=== PATIENT | male | born 1965 | race Caucasian/White ===

== ENCOUNTER 2021-10-18 14:09 | Outpatient (REF) | payer MEDICARE, OTHER, SELFPAY ==
--- NOTE | ~2021-10-18 | US_ITS ---
EXAMINATION: US SCROTUM CLINICAL INFORMATION: Hydrocele. COMPARISON: Ultrasound scrotum 07/13/2016. TECHNIQUE: A sonogram of the scrotum was performed assessing [place]-scale appearance and color Doppler flow. Spectral Doppler analysis of the arterial and venous flow were performed in the testes bilaterally. FINDINGS: RIGHT: Right testicle measures 5.7 x 3.6 x 3.5 cm, volume 37.6 mL. No focal testicular parenchymal lesions are visualized. Spectral Doppler analysis of the arterial and venous flow is normal in the right testis. Right epididymal head is enlarged. There is a large septated right epididymal head cyst measuring 9.7 x 6.1 x 5.7 cm. This is slightly increased from previous exam when this measured 8 x 4.9 x 4.8 cm. No right hydrocele or varicocele is seen. Right epididymal Doppler flow is normal. LEFT: Left testicle measures 5.2 x 2.7 x 3.5 cm, volume 25.7 mL. No focal testicular parenchymal lesions are visualized. Spectral Doppler analysis of the arterial and venous flow is normal in the left testis. Left epididymal head is normal in size. No left hydrocele or varicocele is seen. Left epididymal Doppler flow is normal. US/US scrotum IMPRESSION: Large right minimally complex epididymal head cyst slightly increased in size from prior exam July 2016.
== END 2021-10-18 14:10 | disposition home or self-care (01) ==
LOC: HO.HMGCX 14:09
PROVIDERS: Visit Provider Internal Medicine
DX: N43.3 Hydrocele, unspecified (principal)
CPT/HCPCS: 76870

== ENCOUNTER 2022-01-13 11:19 | Emergency (ER) | payer MEDICARE, OTHER, SELFPAY ==
--- NOTE | ~2022-01-13 | XR_ITS ---
EXAMINATION: XR CHEST: PA AND LATERAL VIEWS XR LEFT SHOULDER: 3 VIEWS CLINICAL INFORMATION: Left scapula/shoulder pain COMPARISON: None. FINDINGS: Normal symmetric lung volumes. No parenchymal consolidation. No pleural effusion. No pneumothorax. Normal heart size. Pulmonary vascularity within normal limits. No acute osseous abnormalities. Small endplate osteophytes present throughout the thoracic spine. Small marginal osteophytes along the glenohumeral and acromioclavicular joints. No suspicious osseous lesions. XR/XR shoulder LT min 2V IMPRESSION: No acute pulmonary parenchymal abnormalities. No acute fracture or dislocation with respect to the left shoulder. Mild acromioclavicular and glenohumeral arthrosis.
--- NOTE | ~2022-01-13 | XR_ITS ---
EXAMINATION: XR CHEST: PA AND LATERAL VIEWS XR LEFT SHOULDER: 3 VIEWS CLINICAL INFORMATION: Left scapula/shoulder pain COMPARISON: None. FINDINGS: Normal symmetric lung volumes. No parenchymal consolidation. No pleural effusion. No pneumothorax. Normal heart size. Pulmonary vascularity within normal limits. No acute osseous abnormalities. Small endplate osteophytes present throughout the thoracic spine. Small marginal osteophytes along the glenohumeral and acromioclavicular joints. No suspicious osseous lesions. XR/XR chest 2V IMPRESSION: No acute pulmonary parenchymal abnormalities. No acute fracture or dislocation with respect to the left shoulder. Mild acromioclavicular and glenohumeral arthrosis.
[2022-01-13 12:20] VITALS: BP 128/89; PULSE 54; RESP 18; TEMP 36; O2SAT 98; BMI 39.3
--- NOTE | 2022-01-13 12:25 | ECG_ITS ---
Test Reason : chest pain Blood Pressure : / mmHG Vent. Rate : 050 BPM Atrial Rate : 050 BPM P-R Int : 202 ms QRS Dur : 108 ms QT Int : 426 ms P-R-T Axes : 056 072 036 degrees QTc Int : 388 ms Sinus bradycardia Otherwise normal ECG When compared with ECG of 25-APR-2012 10:47, No significant change was found Referred By: Generic ED Physician Electronically Signed By:NEDRA HAILE MD
[2022-01-13] MEDS: Lidocaine 4 % Patch ADH..PATCH 1 PATCH TRANSDERMA (13:02)
[2022-01-13] MEDS: Cyclobenzaprine HCl 10 MG TABLET PO (13:02)
[2022-01-13] MEDS: oxyCODONE HCl Immed Release 5 MG TABLET PO ×2 (13:03→14:45)
--- NOTE | 2022-01-13 13:43 | ED_ITS ---
HPI - Neck Pain/Injury General Chief Complaint: Back Pain/Injury Stated Complaint: back pain Time Seen by Provider: 01/13/22 12:49 Source: patient Mode of arrival: ambulatory Limitations: no limitations History of Present Illness HPI Narrative: 56-year-old male with a past medical history of thyroid disease, hyperlipidemia and arthritis presenting to the ED with complaints of atraumatic left scapular/trapezius pain radiating to his left arm with associated numbness/tingling to the thumb and the index finger of the left hand that started at around 04:00 when he woke up this morning. He reports that he normally wakes up at 4 in the morning it did not wake him up out of his sleep. He reports that it the pain is like a pulling sensation that goes down his arm. He reports he has never had this in the past although reports of degenerative disc disease and ruptured discs with spinal fusions in the past. Denies any recent falls or surgeries, dizziness, headaches, neck pain/stiffness, chest pain or shortness of breath, dyspnea exertion, orthopnea, palpitations, abdominal pain, lower back pain, rashes, recent falls or trauma, history of DVT or PE, recent immobilization or surgery, history of cancer or any other symptoms complaints or concerns at this time. MD complaint: upper back pain (left sided) Onset (ago): hour(s) (since he woke up at 4am ) Place: home Radiation: left lateral, left shoulder and upper back Severity: moderate and constant Quality: aching and throbbing Duration: constant Relieving factors: remaining still Exacerbating factors: movement of extremity Context: unknown Associated symptoms: tingling (to left arm/hand at the thumb and index finger ) Treatments prior to arrival: acetaminophen, ibuprofen and naproxen Related Data Previous Rx's Medication Instructions Recorded cyclobenzaprine 10 mg tablet 10 mg PO Q8H PRN Muscle spasm #10 01/13/22 tabs naproxen 500 mg tablet 500 mg PO BID PRN pain #10 tabs 01/13/22 oxycodone 5 mg tablet 5 mg PO Q6H PRN pain #10 tabs 01/13/22 Allergies Allergy/AdvReac Type Severity Reaction Status Date / Time No Known Allergies Allergy Unverified 03/18/20 15:00 Review of Systems Review of Systems: Constitutional : No trauma, No Weight loss, No Fever, No Ch ills, ENT/Mouth : No Hearing loss, No Ear Pain, No Nasal Congestion, No Sinus Pain, No Hoarseness, No sore throat, No Rhinorrhea, No Swallowing Difficulty Cardiovascular : No Chest Pain, No SOB Respiratory : No Cough, No Dyspnea Gastrointestinal : No Nausea, No Vomiting, No Diarrhea, No abdominal Pain, No Hematochezia, No Melena Genitourinary : No Dysuria, No Urinary Frequency, No Hematuria, No Urinary or Bowel Incontinence/retention Musculoskeletal : + Back pain, No neck pain, No joint stiffness, No joint swelling Skin : No Skin Lesions, No rash or signs of infection Neuro : No Weakness, + tingling/Numbness to left hand, No headache, no loss of bowel or bladder incontinence, no saddle anesthesia Denies history of IV drug usage. Yes all other systems are reviewed and are negative PMFSH Past Medical History Attestation statement: The following information was validated with the patient. Source: old records reviewed and nursing notes reviewed Social History Social History Advance Directives: Yes Advance Directives Information Provided: Yes Advance Directives on File: No Physical Exam Vital Signs: Vital Signs: Last Vital Signs Temp 96.8 F 01/13/22 12:20 Pulse 54 01/13/22 12:20 Resp 18 01/13/22 12:20 BP 128/89 01/13/22 12:20 Pulse Ox 98 01/13/22 12:20 O2 Del Method 01/13/22 12:20 BMI result Body Mass Index 39.3 vital signs have been reviewed as normal and appeared to be correct. Blood pressure normal. Heart rate normal. Respiration rate normal. Temperature normal. Oxygen saturation normal. Appearance: Alert. Oriented X3. No acute distress. Head: Normal external exam. Normocephalic. Atraumatic. Eyes: PERRLA. EOMI. Conjunctiva and sclera normal. Eyelids normal. ENT: EAC normal. TM's Normal. Pharynx normal. Uvula midline. Moist mucous membranes. No trismus noted. No drooling noted. No muffled voice noted. Neck: Normal inspection. Neck supple. FROM. No adenopathy. Thyroid Normal. No meningeal signs. No neck mass noted. Patient with tenderness palpation to the left paracervical musculature/trapezius/scapular muscle. No mid cervical tenderness step-offs or deformities noted. Patient neuro intact bilaterally and dyspnea on all 4 extremities. Reflexes intact bilaterally and distally on all 4 extremities. No rashes/lesion/induration/fluctuance or signs of infection noted. CVS: Normal heart rate and rhythm. Heart sound normal. No murmurs noted. Pulses normal throughout. Respiratory: No respiratory distress. Painless inspiration. Breath sounds normal. No wheezes/rales/rhonchi noted. Chest nontender. No accessory muscle usage noted or decreased air movement noted. Abdomen: Soft and nontender. Bowel sounds normal in all 4 quadrants. No distention noted. No organomegaly noted. No visible injury noted. Back: Full range of motion noted. No obvious deformities, or edema.Full ROM in back and lower extremities. 5/5 strength hip extension/flexion, abduction, adduction. Straight leg raise test negative on right; Straight leg raise test negative on left; Reflexes normal ankle and knee bilaterally; EHL motor strength normal bilaterally. No rashes/lesion/induration/fluctuance or signs infection noted. Skin: Skin warm and dry. Normal skin color. Normal skin turgor. No rashes/lesions/lacerations noted. Extremities: Patient with tenderness palpation to the left AC joint although has full range of motion although reports pain with range of motion. No obvious ligamentous or tendon injury noted to the left shoulder. No rashes are noted. No obvious deformities are noted to the left shoulder. Otherwise all other extremities exhibit normal range of motion nontender. Neuro: Oriented X 3. No motor deficit. No sensory deficit. Reflexes normal. Patient has a normal steady gait. Course Course Course Narrative: 13pm - 56-year-old male with a past medical history of thyroid disease, hyperlipidemia and arthritis presenting to the ED with complaints of atraumatic left scapular/trapezius pain radiating to his left arm with associated numbness/tingling to the thumb and the index finger of the left hand that started at around 04:00 when he woke up this morning. He reports that he normally wakes up at 4 in the morning it did not wake him up out of his sleep. He reports that it the pain is like a pulling sensation that goes down his arm. He reports he has never had this in the past although reports of degenerative disc disease and ruptured discs with spinal fusions in the past. Plan: Labs ordered in triage, will obtain chest x-ray, left shoulder x-ray an EKG provide symptomatic treatment with 5 mg of oxycodone and 10 mg of Flexeril and re-evaluate. Reevaluation(s) Reevaluation #1: - labs returned and BUN 20. Calcium 8.3. Otherwise all other labs are within normal limits. Patient had 1- troponin and his symptoms have been constant since 04:00 greater than 6 hours therefore at this time 1 troponin is sufficient. Chest x-ray within normal limits no acute processes noted. Left shoulder x-ray revealed mild AC and glenohumeral arthrosis otherwise no other acute processes. Patient most likely muscular skeletal pain. Will DC home with symptomatic treatment instructions return if any new or worsening symptoms follow up with primary care provider. Patient understands agrees with this plan. Time: 14:29 [facility] - Neck Pain/Injury Medical Records Attestation: I reviewed the patient's medical records. Lab Data Attestation: I reviewed the patient's lab results. Result diagrams: 01/13/22 13:50 01/13/22 13:50 Labs: Lab Results 01/13/22 01/13/22 01/13/22 Range/Units 13:50 13:50 13:50 WBC 6.7 (4.8-10.8) X10*3/uL RBC 4.58 L (4.60-5.80) X10*6/uL Hgb 14.2 (14.0-18.0) g/dl Hct 41.3 L (42.0-52.0) % MCV 90.2 (80.0-98.0) fL MCH 31.0 (27.0-33.0) pg MCHC 34.4 (31.0-36.0) g/dl RDW 12.4 (11.0-16.0) % Plt Count 192 (160-400) X10*3/uL MPV 9.9 (9.4-12.4) fL Immature Gran % (Auto) 0.3 (0.0-0.4) % Neut % (Auto) 61.9 (45-73) % Lymph % (Auto) 25.0 (20-40) % [place] % (Auto) 10.1 (2-11) % Eos % (Auto) 2.1 (0-4) % Baso % (Auto) 0.6 (0-2) % Lymph # (Auto) 1.7 (1.2-4.9) X10*3/uL [place] # (Auto) 0.7 (0.1-1.2) X10*3/uL Eos # (Auto) 0.1 (0.0-0.4) X10*3/uL Baso # (Auto) 0.0 (0.0-0.2) X10*3/uL Abs Immat Gran (auto) 0.02 (0.00-0.03) X10*3/uL Absolute Neuts (auto) 4.1 (2.0-8.3) x10*3/uL Absolute Nucleated RBC 0.000 (0.0-0.012) X10*3/uL Nucleated RBC % (auto) 0.0 (0.0-0.2) /100WBC Sodium 138 (135-145) mmol/L Potassium 4.3 (3.3-5.1) mmol/L Chloride 106 (96-108) mmol/L Carbon Dioxide 23 (22-29) mmol/L Anion Gap 13 (12-20) BUN 20 H (9-16) mg/dL Creatinine 0.82 (0.5-1.4) mg/dL Estim Creat Clear Calc 139.4 Estimated GFR > 60 Random Glucose 83 (60-115) mg/dL Calcium 8.3 L (8.4-10.2) mg/dL Total Bilirubin 0.5 (0.0-1.0) mg/dL Direct Bilirubin 0.2 (0.0-0.5) mg/dL AST 24 (5-37) U/L ALT 22 (0-40) U/L Alkaline Phosphatase 58 (39-117) U/L Troponin I High Sens < 3.5 (<3.5-35.0) ng/L Total Protein 6.5 (6.5-8.0) g/dL Albumin 4.3 (3.5-5.0) g/dL Imaging Data Chest x-ray and left shoulder x-ray: Attestation: I personally reviewed and interpreted this imaging study as follows: Radiologist's impression: FINDINGS: Normal symmetric lung volumes. No parenchymal consolidation. No pleural effusion. No pneumothorax. Normal heart size. Pulmonary vascularity within normal limits. No acute osseous abnormalities. Small endplate osteophytes present throughout the thoracic spine. Small marginal osteophytes along the glenohumeral and acromioclavicular joints. No suspicious osseous lesions. XR/XR shoulder LT min 2V IMPRESSION: No acute pulmonary parenchymal abnormalities. No acute fracture or dislocation with respect to the left shoulder. Mild acromioclavicular and glenohumeral arthrosis. ECG Data Attestation: I personally reviewed and interpreted this ECG as follows: ECG interpretation date: 01/13/22 ECG interpretation time: 12:20 Interpretation: Sinus bradycardia ventricular rate of 50 with a normal VA interval normal QRS duration normal QT/QTC interval. No acute ischemic change are noted. Similar compared to prior EKG 01/13/2022. Discharge Plan Discharge Clinical Impression: Arthritis, Cervical radiculopathy Patient Disposition: Home, Self-Care Instructions: Cervical Radiculopathy (ED), Arthrodesis (DC) Prescriptions: New naproxen 500 mg tablet 500 mg PO BID PRN (Reason: pain) Qty: 10 0RF cyclobenzaprine 10 mg tablet 10 mg PO Q8H PRN (Reason: Muscle spasm) Qty: 10 0RF oxycodone 5 mg tablet 5 mg PO Q6H PRN (Reason: pain) Qty: 10 0RF Rx Instructions: Partial Fill upon patient request. Referrals: Nella Karimi MD [Primary Care Provider] - 3 days Print Language: Hungarian
[2022-01-13 13:56] LABS: MANUAL DIFF FLAG NO
[2022-01-13 13:58] LABS: Basophils Percent Auto 0.6 % (0-2); Eosinophils Absolute Auto 0.1 X10*3/uL (0.0-0.4); Eosinophils Percent Auto 2.1 % (0-4); Hematocrit 41.3 % (42.0-52.0); Hemoglobin 14.2 g/dl (14.0-18.0); Imm Gran Abs Auto 0.02 X10*3/uL (0.00-0.03); Imm Gran Pct Auto 0.3 % (0.0-0.4); Lymphocytes Absolute Auto 1.7 X10*3/uL (1.2-4.9); Mean Corpuscular HGB Conc 34.4 g/dl (31.0-36.0); Mean Corpuscular Volume 90.2 fL (80.0-98.0); Mean Platelet Volume 9.9 fL (9.4-12.4); Monocytes Absolute Auto 0.7 X10*3/uL (0.1-1.2); Monocytes Percent Auto 10.1 % (2-11); Neutrophils Absolute Auto 4.1 x10*3/uL (2.0-8.3); Neutrophils Percent Auto 61.9 % (45-73); Platelet Count 192 X10*3/uL (160-400); Red Blood Count 4.58 X10*6/uL (4.60-5.80); Red Cell Distribution Width 12.4 % (11.0-16.0); White Blood Count 6.7 X10*3/uL (4.8-10.8)
[2022-01-13 14:18] LABS: Alanine Aminotransferase 22 U/L (0-40); Albumin Level 4.3 g/dL (3.5-5.0); Alkaline Phosphatase 58 U/L (39-117); Anion Gap 13 (12-20); Aspartate Amino Transferase 24 U/L (5-37); Bilirubin Direct 0.2 mg/dL (0.0-0.5); Bilirubin Total 0.5 mg/dL (0.0-1.0); Blood Urea Nitrogen 20 mg/dL (9-16); Calcium 8.3 mg/dL (8.4-10.2); Carbon Dioxide 23 mmol/L (22-29); Chloride 106 mmol/L (96-108); Creatinine Clr Calc Pharmacy 139.4; Estimated Glomerular Filt Rate > 60; Glucose Random 83 mg/dL (60-115); Potassium 4.3 mmol/L (3.3-5.1); Sodium 138 mmol/L (135-145); Total Protein 6.5 g/dL (6.5-8.0)
[2022-01-13 14:21] LABS: Troponin-I High Sensitivity < 3.5 ng/L (<3.5-35.0)
[2022-01-13 15:04] VITALS: RESP 17
== END 2022-01-13 15:07 | disposition home or self-care (01) ==
PROVIDERS: Emergency Provider Emergency Medicine; PCP Internal Medicine
DX: M19.012 Primary osteoarthritis, left shoulder (principal); M54.12 Radiculopathy, cervical region
CPT/HCPCS: 36415; 71046; 73030; 80053; 82248; 84484; 85025; 93005; 99283

== ENCOUNTER 2024-02-19 10:25 | Outpatient (REF) | payer MEDICARE, MEDICAID, SELFPAY ==
[2024-02-19 14:28] LABS: MANUAL DIFF FLAG NO
[2024-02-19 14:37] LABS: Basophils Percent Auto 0.8 % (0-2); Eosinophils Absolute Auto 0.1 X10*3/uL (0.0-0.4); Eosinophils Percent Auto 2.1 % (0-4); Hematocrit 45.5 % (42.0-52.0); Hemoglobin 15.6 g/dl (14.0-18.0); Imm Gran Abs Auto 0.01 X10*3/uL (0.00-0.03); Imm Gran Pct Auto 0.2 % (0.0-0.4); Lymphocytes Percent Auto 38.5 % (20-40); Mean Corpuscular HGB Conc 34.3 g/dl (31.0-36.0); Mean Corpuscular Hemoglobin 30.8 pg (27.0-33.0); Mean Corpuscular Volume 89.9 fL (80.0-98.0); Mean Platelet Volume 10.8 fL (9.4-12.4); Monocytes Absolute Auto 0.6 X10*3/uL (0.1-1.2); Monocytes Percent Auto 11.8 % (2-11); Neutrophils Absolute Auto 2.4 x10*3/uL (2.0-8.3); Neutrophils Percent Auto 46.6 % (45-73); Platelet Count 213 X10*3/uL (160-400); Red Blood Count 5.06 X10*6/uL (4.60-5.80); Red Cell Distribution Width 12.4 % (11.0-16.0); White Blood Count 5.2 X10*3/uL (4.8-10.8)
[2024-02-19 14:55] LABS: Cholesterol 160 mg/dL (<200); HDL Cholesterol 52 mg/dL (>40); LDL Cholesterol Calculated 94 mg/dL (<100); Triglycerides 70 mg/dL (<150)
[2024-02-19 15:03] LABS: Prostate Specific Antigen Scr 0.27 ng/mL (<0.05-4.0)
[2024-02-22 10:28] LABS: HCV Log PCR <1.18 NOT DETECTED Log IU/mL (NOT DETECTED); HepC Viral Load <15 NOT DETECTED IU/mL (NOT DETECTED)
== END 2024-02-19 10:26 | disposition home or self-care (01) ==
LOC: HO.CHCLDS 10:25
PROVIDERS: Visit Provider Internal Medicine
DX: Z00.00 Encounter for general adult medical examination without abnormal findings (principal); Z12.5 Encounter for screening for malignant neoplasm of prostate; E66.01 Morbid (severe) obesity due to excess calories
CPT/HCPCS: 36415; 80061; 84153; 85025; 87522

== ENCOUNTER 2024-02-25 15:21 | Outpatient (REF) | payer MEDICARE, MEDICAID, SELFPAY ==
--- NOTE | ~2024-02-25 | US_ITS ---
EXAMINATION: US SCROTUM CLINICAL INFORMATION: Epididymal cyst. Hydrocele. COMPARISON: Ultrasound scrotum 10/18/2021. TECHNIQUE: A sonogram of the scrotum was performed assessing [place]-scale appearance and color Doppler flow. Spectral Doppler analysis of the arterial and venous flow were performed in the testes bilaterally. FINDINGS: RIGHT: Right testicle measures 5.6 x 3.5 x 3.2 cm, volume 32.8 mL. No focal testicular parenchymal lesions are visualized. Spectral Doppler analysis of the arterial and venous flow is normal in the right testis. Right epididymis is not visualized. A large 10.4 x 4.2 x 4.8 cm complex septated cyst with echogenic debris is identified in the region of the right epididymis. Previous ultrasound of 10/18/2021 demonstrated a 9.7 x 6.1 x 5.7 cm complex right epididymal head cyst. A 0.3 x 0.2 x 0.3 cm right scrotal cyst. No right hydrocele or varicocele is seen. Right epididymal Doppler flow is not seen. LEFT: Left testicle measures 5.8 x 2.8 x 5.2 cm, volume 44.9 mL. No focal testicular parenchymal lesions are visualized. Spectral Doppler analysis of the arterial and venous flow is normal in the left testis. A 0.5 x 0.3 x 0.4 cm cyst in the left epididymal body was not identified on the prior exam . Left epididymal Doppler flow is normal. Left hydrocele. Left varicocele. US/US scrotum IMPRESSION: 1. A large 10.4 x 4.2 x 4.8 cm complex septated cyst with echogenic debris is identified in the region of the right epididymis. Previous ultrasound of 10/18/2021 demonstrated a 9.7 x 6.1 x 5.7 cm complex right epididymal head cyst. 2. A 0.3 x 0.2 x 0.3 cm right scrotal cyst was not identified on prior exam. 3. A 0.5 x 0.3 x 0.4 cm cyst in the left epididymal body was not identified on the prior exam. 4. Moderate left hydrocele. 5. Left varicocele. Electronically signed by: Olivia Conklin MD 03/17/2024 06:43 AM EDT
== END 2024-02-25 15:22 | disposition home or self-care (01) ==
LOC: HO.HMGCX 15:21
PROVIDERS: PCP Internal Medicine; Visit Provider Internal Medicine
DX: N50.3 Cyst of epididymis (principal); N43.2 Other hydrocele
CPT/HCPCS: 76870

== ENCOUNTER 2025-05-04 10:39 | Outpatient (REF) | payer MEDICARE, MEDICAID, SELFPAY ==
--- OUTSIDE RECORDS SUMMARY | 2025-05-04 09:30 | XMS_ITS | Encounter Summary ---
Author Organization [employer] Address [address] [place] [address] [address] [place] [address] Care Team Providers Care First Sampler Name Role Phone Nella Karimi MD Primary Care Provider [phone] Reason for Visit * Reason Comments extended office visit Encounter Details Date Type Department Care Team (Latest Contact Info) Description 05/04/2025 9:30 AM EST Office Visit [facility] [address], [place] [phone] Nella Karimi MD [address] [place] [address] History of thyroidectomy (Primary Dx); Spermatocele; History of arthroplasty of right knee; Dietary counseling; Exercise counseling; Class 3 severe obesity due to excess calories with serious comorbidity and body mass index (BMI) of 40.0 to 44.9 in adult (HCC); Anxiety; Other depression; Mixed hyperlipidemia; Excessive cerumen in right ear canal; Blurry vision, bilateral Social History Tobacco Use Types Packs/Day Years Used Date Smoking Tobacco: Some Days Cigarettes Passive Smoke Exposure: Never Smokeless Tobacco: Never Depression Answer Date Recorded Patient Health Questionnaire-9 Score 9 05/04/2025 Patient Health Questionnaire-9 Score 9 05/04/2025 Last PHQ-9: Questionnaire Data Not on file 1 07/04/2024 Housing Stability Answer Date Recorded What is your housing situation today? I have rossi siegel 05/04/[address] you li ve. Do you have problems with any of the following? None of the above 05/04/2025 Food Insecurity Answer Date Recorded Within the past 12 months, y ou worried that your food would run out before you got money to buy more: Often true 05/04/2025 Within the past 12 months,th e food you bought just didn't last and you didn't have enough money to get more: Often true 08/2024 Transportation Answer Date Recorded In the past 12 months, has l ack of transportation kept you from medical appts, meetings, work or from getting things needed for daily living? No 05/04/2025 Utilities Answer Date Recorded In the past 12 months, has t he electric, gas, oil or water company threatened to shut off services in your home? No 05/04/2025 Depression Answer Date Recorded Patient Health Questionnaire-2 Score 3 05/04/2025 Internet Access Answer Date Recorded Internet Access Q1 Yes 05/04/2025 Internet Access Q2 Not on file 05/04/2025 Sex and Gender Information Value Date Recorded Sex Assigned at Male 05/01/2022 10:21 AM EDT Legal Sex Male 10:21 AM EDT Gender Identity Male 05/01/2022 10:21 AM EDT Sexual Orientation Straight 05/01/2022 10 :21 AM EDT documented as of this encounter Last Filed Vital Signs Vital Sign Reading Time Taken Comments Blood Pressure 109/84 05/04/2025 9:52 AM EST Pulse 54 05/04/2025 9:52 AM EST Temperature - - Respiratory Rate 19 05/04/2025 9:52 AM EST Oxygen Saturation 98% 05/04/2025 9:52 AM EST Inhaled Oxygen Concentration - - Weight 133 kg (293 lb) 05/04/2025 9:52 AM EST Height 180.3 cm (5' 11 ) 05/04/2025 9:52 AM EST Body Mass Index 40.87 05/04/2025 9:52 AM EST documented in this encounter Functional Status * Over the past 2 weeks, how often have you been bothered by any of the following problems? Question Answer Date of Assessment Author Patient Health Questionnaire-2 Score 3 08/2024 10:26 AM EST Marian Montana MA * Little interest or pleasure in doing things Answer Date of Assessment Author More than half the days 05/04/2025 10:26 AM Marian Dong MA * Feeling down, depressed, or hopeless Answer Date of Assessment Author Several days 05/04/2025 10:26 AM Andres Dong MA * Trouble falling or staying asleep, or sleeping too much Answer Date of Assessment Author Not at all 05/04/2025 10:26 AM Andres Dong MA * Feeling tired or having little energy Answer Date of Assessment Author More than half the days 05/04/2025 10:26 AM Marian Dong MA * Poor appetite or overeating Answer Date of Assessment Author Several days 05/04/2025 10:26 AM Andres Dong MA * Feeling bad about yourself - or that you are a failure or have let yourself or your family down Answer Date of Assessment Author Several days 05/04/2025 10:26 AM Andres Dong MA * Trouble concentrating on things, such as reading the newspaper or watching television Answer Date of Assessment Author Several days 05/04/2025 10:26 AM Andres Dong MA * Moving or speaking so slowly that other people could have noticed? Or the opposite - being so fidgety or restless that you have been moving around a lot more than usual. Answer Date of Assessment Author Not at all 05/04/2025 10:26 AM Andres Dong MA * Thoughts that you would be better off or hurting yourself in some way Answer Date of Assessment Author Several days 05/04/2025 10:26 AM Andres Dong MA * Patient Health Questionnaire-9 Score Answer Date of Assessment Author 9 05/04/2025 10:26 AM Andres Dong MA * How difficult have these problems made it for you to do your work, take care of things at home, or get along with other people? Answer Date of Assessment Author Somewhat difficult 05/04/2025 10:26 AM Marian Dong MA documented as of this encounter Plan of Treatment Upcoming Encounters Date Type Department Care Team ([facility] st Contact Info) Description 06/04/2025 10:30 AM EST Office Visit [facility] [address] [place] [address] Nella Karimi MD [address] [place] [address] 06/05/2025 8:00 AM EST Office Visit [facility] [address] [place] [address] Gilles Johnson [address] [place] [address] 06/22/2025 2:15 PM EST Office Visit [facility] [address] [place] [address] David Karimi Scheduled Orders Name Type Priority Associated Diagnoses Orde r Schedule CBC auto differential Lab Routine History of thyroidectomy Class 3 severe obesity due to excess calories with serious comorbidity and body mass index (BMI) of 40.0 to 44.9 in adult ([facility]) Expected: 05/04/2025 (Approximate), Expires: 05/04/2026 Comprehensive Metabolic Panel Lab Routine History of thyroidectomy Class 3 severe obesity due to excess calories with serious comorbidity and body mass index (BMI) of 40.0 to 44.9 in adult ([facility]) Expected: 05/04/2025 (Approximate), Expires: 05/04/2026 Lipid Panel, Standard Lab Routine History of thyroidectomy Class 3 severe obesity due to excess calories with serious comorbidity and body mass index (BMI) of 40.0 to 44.9 in adult ([facility]) Expected: 05/04/2025 (Approximate), Expires: 05/04/2026 documented as of this encounter Visit Diagnoses Diagnosis History of thyroidectomy- Primary Other postprocedural status Spermatocele History of arthroplasty of right knee Dietary counseling Dietary surveillance and counseling Exercise counseling Class 3 severe obesity due to excess calories with serious comorbidity and body mass index (BMI) of 40.0 to 44.9 in adult ([facility]) Anxiety Anxiety state, unspecified Other depression Mixed hyperlipidemia Excessive cerumen in right ear canal Blurry vision, bilateral Other specified visual disturbances documented in this encounter Additional Health Concerns Assessment Noted Time PHQ-9 Depression Total Score: 9 05/04/20 25 10:26 AM EST documented as of this encounter Care Teams First Sampler Relationship Specialty Start Date End Date Nella Karimi MD [address] [place] [address] PCP - General Internal Medicine 07/02/18 documented as of this encounter
--- OUTSIDE RECORDS SUMMARY | 2025-05-04 13:00 | XMS_ITS | Encounter Summary ---
Author Organization [employer] Address [address] [facility] 7t [place] [address] Care Team Providers Care Clerical Aide Teacher Name Role Phone Nella Karimi MD Primary Care Provider [phone]- [phone] Reason for Visit * Reason Onset Date Comments PT1 06/02/2024 Encounter Details Date Type Department Care Team ([facility] st Contact Info) Description 06/02/2024 Telephone [facility] MED & PEDS [address] [place], [place] [phone] Nella Karimi MD [address] [place] [address] PT1 Social History Tobacco Use Types Packs/Day Years Used Date Smoking Tobacco: Some Days Cigarettes Passive Smoke Exposure: Never Smokeless Tobacco: Never Housing Stability Answer Date Recorded What is your housing situation today? I have rossi siegel 02/11/[address] you li ve. Do you have problems with any of the following? None of the above 02/11/2024 Food Insecurity Answer Date Recorded Within the past 12 months, y ou worried that your food would run out before you got money to buy more: Never True 02/11/2024 Within the past 12 months,th e food you bought just didn't last and you didn't have enough money to get more: Never True 06/2024 Transportation Answer Date Recorded In the past 12 months, has l ack of transportation kept you from medical appts, meetings, work or from getting things needed for daily living? No 02/11/2024 Utilities Answer Date Recorded In the past 12 months, has t he electric, gas, oil or water company threatened to shut off services in your home? No 02/11/2024 Internet Access Answer Date Recorded Internet Access Q1 Yes 03/03/2024 Internet Access Q2 Not on file 03/03/2024 Sex and Gender Information Value Date Recorded Sex Assigned at Male 05/01/2022 10:21 AM EDT Legal Sex Male 10:21 AM EDT Gender Identity Male 05/01/2022 10:21 AM EDT Sexual Orientation Straight 05/01/2022 10 :21 AM EDT documented as of this encounter Miscellaneous Notes * Telephone Encounter - Radha Nelson - 06/02/2024 2:36 PM EST Patient calling requesting PT1 Home Address verified: Y/N: Yes Provider name or facility name: [facility] Facility Address: [address] [place] [address] Escort needed: Y/N: Yes Do you have a wheelchair: Y/N: No If yes- Manual or electric: Visits: 2 times a month documented in this encounter Plan of Treatment Upcoming Encounters Date Type Department Care Team (Late st Contact Info) Description 06/04/2025 10:30 AM EST Office Visit [facility] MED & PEDS [address] [place] [address] Nella Karimi MD [address] [place] [address] 06/05/2025 8:00 AM EST Office Visit [facility] ADULT DENTAL [address] [place] [address] Gilles Johnson 505 [place] [address] 06/22/2025 2:15 PM EST Office Visit [facility] ADULT DENTAL [address] [place] [address] David Karimi documented as of this encounter Visit Diagnoses Not on filedocumented in this encounter Care Teams Clerical Aide Teacher Relationship Specialty Start Date End Date Nella Karimi MD [address] [place] [address] PCP - General Internal Medicine 07/02/18 documented as of this encounter
--- OUTSIDE RECORDS SUMMARY | 2025-05-04 13:00 | XMS_ITS | Encounter Summary ---
Author Organization [employer] Address [address] [place] [address] 7t [place] [address] Care Team Providers Care Loan Operations Manager Name Role Phone Nella Karimi MD Primary Care Provider [phone]- [phone] Encounter Details Date Type Department Care Team (Late st Contact Info) Description 06/16/2022 Orders Only [facility] [address] [place] [address] Nella Karimi MD [address] [place] [address] Primary osteoarthritis of both knees (Primary Dx) Social History Tobacco Use Types Packs/Day Years Used Date Smoking Tobacco: Never Assessed Sex and Gender Information Value Date Recorded Sex Assigned at Male 05/01/2022 10:21 AM EDT Legal Sex Male 10:21 AM EDT Gender Identity Male 05/01/2022 10:21 AM EDT Sexual Orientation Straight 05/01/2022 10 :21 AM EDT documented as of this encounter Plan of Treatment Upcoming Encounters Date Type Department Care Team (Late st Contact Info) Description 06/04/2025 10:30 AM EST Office Visit [facility] [address] [place] [address] Nella Karimi MD [address] [place] [address] 06/05/2025 8:00 AM EST Office Visit [facility] ADULT [facility] [address] [place] [address] Gilles Johnson [address] [place] [address] 06/22/2025 2:15 PM EST Office Visit [facility] ADULT DENTAL [address] [place] [address] David Karimi documented as of this encounter Visit Diagnoses Diagnosis Primary osteoarthritis of both knees- Primary documented in this encounter Care Teams Loan Operations Manager Relationship Specialty Start Date End Date Nella Karimi MD [address] [place] [address] PCP - General Internal Medicine 07/02/18 documented as of this encounter
--- OUTSIDE RECORDS SUMMARY | 2025-05-04 13:00 | XMS_ITS | Encounter Summary ---
Author Organization [employer] Address [address] [facility] 7t [place] [address] Care Team Providers Care Sales Teacher Name Role Phone Nella Karimi MD Primary Care Provider [phone] Encounter Details Date Type Department Care Team ([facility] st Contact Info) Description 06/06/2024 Orders Only [facility] CH[facility] MED & PEDS [address] [place], [place] [phone] Nella Karimi MD [address] [place], [place] [phone] Social History Tobacco Use Types Packs/Day Years [...] Description 06/04/2025 10:30 AM EST Office Visit [facility] MED & PEDS [address] [place] [address] Nella Karimi MD [address] [place] [address] 06/05/2025 8:00 AM EST Office Visit [facility] ADULT DENTAL [address] [place] [address] [employer] [address] [place] [address] 06/22/2025 2:15 PM EST Office Visit [facility] ADULT DENTAL [address] [place] [address] David Karimi documented as of this encounter Visit Diagnoses Not on filedocumented in this encounter Care Teams Sales Teacher Relationship Specialty Start Date End Date Nella Karimi MD [address] [place] [address] PCP - General Internal Medicine 07/02/18 documented as of this encounter
--- OUTSIDE RECORDS SUMMARY | 2025-05-04 13:00 | XMS_ITS | Encounter Summary ---
Author Organization [employer] Address [address] [facility] 7t [place] [address] Care Team Providers Care Edge Dyer Name Role Phone Nella Karimi MD Primary Care Provider [phone]- [phone] Reason for Visit * Reason Onset Date Comments Appointment Request 06/02/2024 Encounter Details Date Type Department Care Team ([facility] st Contact Info) Description 06/02/2024 Telephone [facility] MED & PEDS [address] [place], [place] [phone] Nella Karimi MD [address] [place] [address] Appointment Request Social History Tobacco Use Types Packs/Day Years [...] Radha Nelson - 06/02/2024 2:36 PM EST Tc from pt requesting to r/s derm appt. documented in this encounter Plan of Treatment Upcoming Encounters Date Type Department Care Team (Late st Contact Info) Description 06/04/2025 10:30 AM EST Office Visit [facility] MED & PEDS [address] [place] [address] Nella Karimi MD [address] [place] [address] 06/05/2025 8:00 AM EST Office Visit [facility] ADULT DENTAL [address] [place] [address] [employer] [address] [place] [address] 06/22/2025 2:15 PM EST Office Visit [facility] ADULT DENTAL [address] [place] [address] David Karimi documented as of this encounter Visit Diagnoses Not on filedocumented in this encounter Care Teams Edge Dyer Relationship Specialty Start Date End Date Nella Karimi MD [address] [place] [address] PCP - General Internal Medicine 07/02/18 documented as of this encounter
--- OUTSIDE RECORDS SUMMARY | 2025-05-04 13:01 | XMS_ITS | Encounter Summary ---
Author Organization [employer] Address [address] [place] [address] 7 [place] [address] Care Team Providers Care Bindery Technician Name Role Phone Nella Karimi MD Primary Care Provider [phone]- [phone] Encounter Details Date Type Department Care Team (Latest Contact Info) Description 12/22/2020 Abstract [facility] Dental, Provider, DDS Social History Tobacco Use Types Packs/Day Years [...] Upcoming Encounters Date Type Department Care Team ( st Contact Info) Description 06/04/2025 10:30 AM EST Office Visit [facility] MED & PEDS [address] [place] [address] Nella Karimi MD 505 [place] [address] 06/05/2025 8:00 AM EST Office Visit [facility] ADULT D[facility] [address] [place] [address] Gilles Johnson 505 [place] [address] 06/22/2025 2:15 PM EST Office Visit [facility] [address] [place] [address] David Karimi documented as of this encounter Visit Diagnoses Not on filedocumented in this encounter Care Teams Bindery Technician Relationship Specialty Start Date End Date Nella Karimi MD [address] [place] [address] PCP - General Internal Medicine 07/02/18 documented as of this encounter
--- OUTSIDE RECORDS SUMMARY | 2025-05-04 13:01 | XMS_ITS | Encounter Summary ---
Author Organization [employer] Address [address] [place] [address] 7t [place] [address] Care Team Providers Care Family Manager Name Role Phone Nella Karimi MD Primary Care Provider [phone] Reason for Visit * Reason Onset Date Comments Med Refill 06/07/2022 Patient called i n requesting script for antibiotic as pre tx prior to appt tomorrow. Request sent to provider Encounter Details Date Type Department Care Team ([facility] Contact Info) Description 06/07/2022 Telephone [facility] ADULT DENTAL [address] [place] [address] Dental, Provider, DDS Med Refill (Patient called in requesting script for antibiotic as pre tx prior to appt tomorrow. Request sent to provider ) Social History Tobacco Use Types Packs/Day Years Used Date Smoking Tobacco: Never Assessed Sex and Gender Information Value Date Recorded Sex Assigned at Male 05/01/2022 10:21 AM EDT Legal Sex Male 10:21 AM EDT Gender Identity Male 05/01/2022 10:21 AM EDT Sexual Orientation Straight 05/01/2022 10 :21 AM EDT documented as of this encounter Miscellaneous Notes * Telephone Encounter - Jennifer Lopez - 06/07/2022 1:36 PM EST Patient called in requesting script for antibiotic as pre tx prior to appt tomorrow. documented in this encounter Plan of Treatment Upcoming Encounters Date Type Department Care Team (Late Contact Info) Description 06/04/2025 10:30 AM EST Office Visit [facility] MED & PEDS [address] [place] [address] Nella Karimi MD [address] [place] [address] 06/05/2025 8:00 AM EST Office Visit [facility] ADULT DENTAL [address] [place] [address] Gilles Johnson 505 [place] [address] 06/22/2025 2:15 PM EST Office Visit [facility] ADULT DENTAL [address] [place] [address] David Karimi documented as of this encounter Visit Diagnoses Not on filedocumented in this encounter Care Teams Family Manager Relationship Specialty Start Date End Date Nella Karimi MD [address] [place] [address] PCP - General Internal Medicine 07/02/18 documented as of this encounter
--- OUTSIDE RECORDS SUMMARY | 2025-05-04 13:01 | XMS_ITS | Encounter Summary ---
Author Organization [employer] Address [address] [place] [address] 7t [place] [address] Care Team Providers Care Sand Molder Name Role Phone Nella Karimi MD Primary Care Provider [phone]- [phone] Encounter Details Date Type Department Care Team (Late Contact Info) Description 08/15/2022 Orders Only [facility]ICINE [address] [place], [place] [phone] Nella Karimi MD [address] [place], [place] [phone] Primary osteoarthritis involving multiple joints (Primary Dx); Pure hypercholesterolemia; Morbid obesity (CMS/HCC) Social History Tobacco Use Types Packs/Day Years [...] Description 06/04/2025 10:30 AM EST Office Visit [facility] MED & PEDS [address] [place], [place] [phone] Nella Karimi MD [address] [place], [place] [phone] 06/05/2025 8:00 AM EST Office Visit [facility] ADULT DENTAL [address] [place], [place] [phone] Gilles Johnson 505 [place] [address] 06/22/2025 2:15 PM EST Office Visit [facility] ADULT DENTAL [address] [place] [address] David Karimi Scheduled Orders Name Type Priority Associated Diagnoses Orde r Schedule Comprehensive Metabolic Panel Lab Routine Morbid obesity (CMS/HCC) Expected: 08/15/2022 (Approximate), Expires: 08/15/2023 Hemoglobin A1c Lab Routine Morbid obesity ([facility]/HCC) Expected: 08/15/2022 (Approximate), Expires: 08/15/2023 CBC auto differential Lab Routine Morbid obesity (CMS/HCC) Expected: 08/15/2022 (Approximate), Expires: 08/15/2023 Lipid Panel, Standard Lab Routine Pure hypercholesterolemia Expected: 08/15/2022 (Approximate), Expires: 08/15/2023 documented as of this encounter Visit Diagnoses Diagnosis Primary osteoarthritis involving multiple joints- Primary Pure hypercholesterolemia Morbid obesity (CMS/[facility]) (HCC) Morbid obesity documented in this encounter Care Teams Sand Molder Relationship Specialty Start Date End Date Nella Karimi MD [address] [place] [address] PCP - General Internal Medicine 07/02/18 documented as of this encounter
--- OUTSIDE RECORDS SUMMARY | 2025-05-04 13:01 | XMS_ITS | Patient Health Record ---
Author Organization [facility] Address [address] [facility] [place] [address] Care Team Providers Care Channel Lip Stiffener Insoles Name Role Phone Nella Karimi Primary Care Provider Unavail able Mariella Salgado Unavailable [phone] Allergies No Known Allergies Reason For Referral No Information Medications Medication SIG (Take, Route, Frequency, Duration) Notes Start Date End Date Status Vitamin D 25 MCG (1000 UT) 1 tablet Oral ly Once a day; Duration: 30 day(s) Active Ciclopirox Olamine 0.77 % 1 application to affected area Externally to feet Twice a day; Duration: 30 days Active Ciclopirox 0.77 % 1 application to aff ected area Externally Twice a day; Duration: 365 days Active PARoxetine HCl 20 MG 1 tablet in the mor bryan Orally Once a day; Duration: 30 day(s) Active Levothyroxine Sodium Active Simvastatin 40 MG 1 tablet in the even ing Orally Once a day; Duration: 30 day(s) Active traZODone HCl 100 MG 1 tablet at bedtime Orally Once a day; Duration: 30 day(s) Active Calcium 600 MG 1 tablet with meals Orally Twice a day; Duration: 30 day(s) Active Meloxicam 15 MG 1 tablet Orally Once a day; Duration: 30 day(s) Active Immunizations Vaccine Route Administration Date Status Comme nts COVID-19 Moderna Vaccine Unknown 05/17/2021 Administered 1ST DOSE: 10/03/2020 2ND DOSE: 10/31/2020 Social History Tobacco Use: Social History Observation Description Date Details (start date - stop date) Current Smoker NA - NA Tobacco Use/Smoking Question Answer Notes Are you a: current smoker How often do you smoke cigarettes? every day How many cigarettes a day do you smoke? 11-20 Alcohol Screen Question Answer Notes Did you have a drink contain ing alcohol in the past year? Yes How often did you have a dri nk containing alcohol in the past year? 2 to 3 times a week (3 points) Points 3 Interpretation Negative Tobacco use other than smoking: Question Answer Notes Are you an other tobacco user? No Plan Of Treatment No Information Insurance Providers Payer Name Payer Address Payer Phone Subscriber Number Group Number Insured Name Patient Relationship to Insured Coverage Start Date Coverage End Date Medicare National Govt [employer] [address] [place] [address] [id number] Matt Gutierrez Self - patient is the insured Medical (General) History Medical History History ICD Code Anxiety Arthritis Back,Hip,and Knee pain Broken bones Cholesterol Cancer Depression Keloid/Thick Scar thyroid Bone implants/screws Surgical History Surgery Date(Month/Year) knee replacement 2014 Thyroid Surgery 2015 disc surgery 2016
--- OUTSIDE RECORDS SUMMARY | 2025-05-04 13:01 | XMS_ITS | Encounter Summary ---
Author Organization [employer] Address [address] [place] [address] 7 [place] [address] Care Team Providers Care Home Health Registered Nurse Name Role Phone Nella Karmii MD Primary Care Provider [phone]- [phone] Reason for Visit * Reason Comments Med Refill Encounter Details Date Type Department Care Team (Late st Contact Info) Description 10/13/2023 Refill [facility] MED & PEDS [address] [place] [address] Nella Karimi MD [address] [place] [address] Primary osteoarthritis of both knees Social History Tobacco Use Types Packs/Day Years [...] Description 06/04/2025 10:30 AM EST Office Visit [facility] MED & PEDS [address] [place] [address] Nella Karimi MD [address] [place] [address] 06/05/2025 8:00 AM EST Office Visit [facility] ADULT DENTAL [address] [place] [address] Gilles Johnson [address] [place] [address] 06/22/2025 2:15 PM EST Office Visit [facility] ADULT DENTAL [address] [place] [address] David Karimi documented as of this encounter Visit Diagnoses Diagnosis Primary osteoarthritis of both knees documented in this encounter Care Teams Home Health Registered Nurse Relationship Specialty Start Date End Date Nella Karimi MD [address] [place] [address] PCP - General Internal Medicine 07/02/18 documented as of this encounter
--- OUTSIDE RECORDS SUMMARY | 2025-05-04 13:01 | XMS_ITS | Encounter Summary ---
Author Organization [employer] Address [address] [place] [address] 7t [place] [address] Care Team Providers Care Instrumentation Specialist Name Role Phone Nella Karimi MD Primary Care Provider +1- [phone] Encounter Details Date Type Department Care Team (Latest Contact Info) Description 10/24/2018 Abstract [facility] Dental, Provider, DDS Social History [...] Description 06/04/2025 10:30 AM EST Office Visit [facility] MED & PEDS [address] [place] [address] Nella Karimi MD [address] [place] [address] 06/05/2025 8:00 AM EST Office Visit [facility] ADULT DENTAL [address] [place] [address] Gilles Johnson [address] [place] [address] 06/22/2025 2:15 PM EST Office Visit [facility] ADULT DENTAL [address] [place] [address] David Karimi documented as of this encounter Visit Diagnoses Not on filedocumented in this encounter Care Teams Instrumentation Specialist Relationship Specialty Start Date End Date Nella Karimi MD [address] [place] [address] PCP - General Internal Medicine 07/02/18 documented as of this encounter
--- OUTSIDE RECORDS SUMMARY | 2025-05-04 13:01 | XMS_ITS | Encounter Summary ---
Author Organization [employer] Address [address] [place] [address] [place] [address] Care Team Providers Care Hydropulper Name Role Phone Nella Karimi MD Primary Care Provider [phone] Reason for Referral * Consultation (Routine) - Closed Specialty Diagnoses / Procedures Referred By Mono mobley Referred To Contact Urology Diagnoses Cyst of epididymis Nella Karimi MD [address] [place] [address] Phone: tel: fax: [facility] [address] [place] [address] Phone: tel: fax: Referral ID Status Reason Start Date Expiration Date V isits Requested Visits Authorized [id number] Closed Specialty Services Required 03/21/2024 03/21/2025 1 1 Encounter Details Date Type Department Care Team (Late st Contact Info) Description 03/21/2024 Orders Only [facility] MED & PEDS [address] [place], [place] [phone] Nella Karimi MD [address] [place], [place] [phone] Cyst of epididymis (Primary Dx) Social History Tobacco Use Types [...] 10:30 AM EST Office Visit [facility] MED & PEDS [address] [place] [address] Nella Karimi MD [address] [place] [address] 06/05/2025 8:00 AM EST Office Visit [facility] ADULT DENTAL [address] [place] [address] Gilles Johnson [address] [place] [address] 06/22/2025 2:15 PM EST Office Visit [facility] ADULT DENTAL [address] [place] [address] David Karimi Scheduled Referrals Name Type Priority Associated Diagnoses Orde r Schedule Referral to Urology Outpatient Referral Routine Cyst of epididymis Expected: 03/21/2024 (Approximate), Expires: 03/21/2025 documented as of this encounter Visit Diagnoses Diagnosis Cyst of epididymis- Primary Other specified disorder of male genital organs documented in this encounter Care Teams Hydropulper Relationship Specialty Start Date End Date Nella Karimi MD [address] [place] [address] PCP - General Internal Medicine 07/02/18 documented as of this encounter
--- OUTSIDE RECORDS SUMMARY | 2025-05-04 13:01 | XMS_ITS | Encounter Summary ---
Author Organization [employer] Address [address] [facility] 7t [place] [address] Care Team Providers Care Can Inspector Name Role Phone Nella Karimi MD Primary Care Provider [phone] Reason for Visit * Reason Comments Care Coordination CHW outreach for SDO H food needs-LVM Encounter Details Date Type Department Care Team (Latest Contact Info) Description 05/04/2025 Patient Outreach [facility] MEDICINE [address] [place] [address] Nella Karimi MD [address] [place] [address] Care Coordination (CHW outreach for SDOH food needs-LVM) Social History Tobacco Use Types Packs/Day Years [...] AM EDT documented as of this encounter Functional Status * Over the past 2 weeks, how often have you been bothered by any of the following problems? Question Answer Date of Assessment Author Patient Health Questionnaire-2 Score 3 08/2024 10:26 AM Marian Dong MA * Little interest or pleasure in [...] Dong MA documented as of this encounter Progress Notes * Toby Gottlieb - 05/04/2025 11:14 AM EST CHW Toby Gottlieb, placed outbound call to patient for assistance with SDOH as a referral was placed by the provider. Patient had screened positive for the following SDOH housing insecurities. Patient did not answer at this time. Patient's name and were not confirmed. CHW left detailed message and provided contact information requesting return call for more assistance. documented in this encounter Plan of Treatment Upcoming Encounters Date Type Department Care Team (Late st Contact Info) Description 06/04/2025 10:30 AM EST Office Visit [facility] MED & PEDS [address] [place] [address] Nella Karimi MD [address] [place] [address] 06/05/2025 8:00 AM EST Office Visit [facility] ADULT DENTAL [address] [place] [address] Gilles Johnson [address] [place] [address] 06/22/2025 2:15 PM EST Office Visit [facility] ADULT DENTAL [address] [place] [address] David Karimi documented as of this encounter Visit Diagnoses Not on filedocumented in this encounter Additional Health Concerns Assessment Noted Time PHQ-9 Depression Total Score: 9 05/04/20 25 10:26 AM EST documented as of this encounter Care Teams Can Inspector Relationship Specialty Start Date End Date Nella Karimi MD [address] [place] [address] PCP - General Internal Medicine 07/02/18 documented as of this encounter
--- OUTSIDE RECORDS SUMMARY | 2025-05-04 13:01 | XMS_ITS | Encounter Summary ---
Author Organization [employer] Address [address] [facility] 7t [place] [address] Care Team Providers Care Silverware Etcher Name Role Phone Nella Karimi MD Primary Care Provider [phone] Encounter Details Date Type Department Care Team ([facility] st Contact Info) Description 05/04/2025 Telephone [facility]S [address] [place], [place] [phone] Nella Karimi MD 505 [place], [place] [phone] Social History Tobacco Use Types Packs/Day Years [...] Dong [place] documented as of this encounter Miscellaneous Notes * Telephone Encounter - Marian Montana [place] - 05/04/2025 10:28 AM EST food documented in this encounter Plan of Treatment Upcoming Encounters Date Type Department Care Team (Late st Contact Info) Description 06/04/2025 10:30 AM EST Office Visit [facility] MED & PEDS [address] [place] [address] Nella Kairmi MD 505 [place] [address] 06/05/2025 8:00 AM EST Office Visit [facility] ADULT DENTAL 505 [place] [address] Gilles Johnson 505 [place] [address] 06/22/2025 2:15 PM EST Office Visit [facility] ADULT DENTAL 505 [place] [address] David Karimi documented as of this encounter Visit Diagnoses Not on filedocumented in this encounter Additional Health Concerns Assessment Noted Time PHQ-9 Depression Total Score: 9 05/04/20 10:26 AM EST documented as of this encounter Care Teams Silverware Etcher Relationship Specialty Start Date End Date Nella Karimi MD [address] [place] [phone] PCP - General Internal Medicine 07/02/18 documented as of this encounter
--- OUTSIDE RECORDS SUMMARY | 2025-05-04 13:01 | XMS_ITS | Encounter Summary ---
Author Organization [employer] Address [address] [place] [address] 7 [place] [address] Care Team Providers Care Internet Media Planner Name Role Phone Nella Karimi MD Primary Care Provider [phone] Reason for Visit * Reason Comments Med Refill Encounter Details Date Type Department Care Team (Late Contact Info) Description 08/09/2023 Refill [facility] MED & PEDS 505 [place] [address] Nella Karimi MD 505 [place] [address] Adjustment insomnia Social History Tobacco Use Types Packs/Day Years [...] Description 06/04/2025 10:30 AM EST Office Visit [facility] MED & PEDS 505 [place] [address] Nella Karimi MD 505 [place] [address] 06/05/2025 8:00 AM EST Office Visit [facility] ADULT DENTAL 505 [place] [address] Gilles Johnson 505 [place] [address] 06/22/2025 2:15 PM EST Office Visit [facility] ADULT DENTAL 505 [place] [address] David Karimi documented as of this encounter Visit Diagnoses Diagnosis Adjustment insomnia Insomnia, unspecified documented in this encounter Care Teams Internet Media Planner Relationship Specialty Start Date End Date Nella Karimi MD 505 [place] [address] PCP - General Internal Medicine 07/02/18 documented as of this encounter
--- OUTSIDE RECORDS SUMMARY | 2025-05-04 13:01 | XMS_ITS | Encounter Summary ---
Author Organization [employer] Address [address] [place] [address] 7 [place] [address] Care Team Providers Care History Card Clerk Name Role Phone Nella Karimi MD Primary Care Provider [phone] Reason for Visit * Reason Comments Med Refill Encounter Details Date Type Department Care Team (Late st Contact Info) Description 07/01/2023 Refill [facility] MED & PEDS 505 [place] [address] Nella Karimi MD 505 [place] [address] Social History Tobacco Use Types Packs/Day Years [...] Description 06/04/2025 10:30 AM EST Office Visit [facility] MED & PEDS 505 [place] [address] Nella Karimi MD 505 [place] [address] 06/05/2025 8:00 AM EST Office Visit [facility] ADULT DENTAL 505 [place] [address] Gilles Johnson 505 [place] [address] 06/22/2025 2:15 PM EST Office Visit [facility] ADULT DENTAL 505 [place] [address] David Karimi documented as of this encounter Visit Diagnoses Not on filedocumented in this encounter Care Teams History Card Clerk Relationship Specialty Start Date End Date Nella Karimi MD [address] [place] [address] PCP - General Internal Medicine 07/02/18 documented as of this encounter
--- OUTSIDE RECORDS SUMMARY | 2025-05-04 13:01 | XMS_ITS | Encounter Summary ---
Author Organization [employer] Address [address] [facility] 7t [place] [address] Care Team Providers Care Wire Harness Assembler Name Role Phone Nella Karimi MD Primary Care Provider [phone] Reason for Visit * Reason Onset Date Comments PT-1 02/10/2025 Encounter Details Date Type Department Care Team ([facility] st Contact Info) Description 02/10/2025 Telephone [facility] MEDICINE [address] [place], [place] [phone] Nella Karimi MD 505 [place], [place] [phone] PT-1 Social History Tobacco Use Types Packs/Day Years [...] encounter Miscellaneous Notes * Telephone Encounter - Davey Bragg - 02/10/2025 2:12 PM EDT Patient calling requesting PT1 Home Address verified: Y/N: Yes Provider name or facility name: [facility] Facility Address: [address] [place] [address] Escort needed: Y/N: Yes Do you have a wheelchair: Y/N: No If yes- Manual or electric: N/A Visits: Twice a month documented in this encounter Plan of Treatment Upcoming Encounters Date Type Department Care Team (Late st Contact Info) Description 06/04/2025 10:30 AM EST Office Visit [facility] MED & PEDS [address] [place] [address] Nella Karimi MD 505 [place] [address] 06/05/2025 8:00 AM EST Office Visit [facility] ADULT DENTAL [address] [place] [address] Gilles Johnson 505 [place] [address] 06/22/2025 2:15 PM EST Office Visit [facility] ADULT DENTAL 505 [place] [address] David Karimi documented as of this encounter Visit Diagnoses Not on filedocumented in this encounter Care Teams Wire Harness Assembler Relationship Specialty Start Date End Date Nella Karimi MD 505 [place] [address] PCP - General Internal Medicine 07/02/18 documented as of this encounter
--- OUTSIDE RECORDS SUMMARY | 2025-05-04 13:01 | XMS_ITS | Encounter Summary ---
Author Organization [employer] Address [address] [place] [address] 7 [place] [address] Care Team Providers Care Circulation Assistant Name Role Phone Nella Karimi MD Primary Care Provider [phone] Encounter Details Date Type Department Care Team (Latest Contact Info) Description 05/24/2022 Abstract [facility] CONVERSIONS Dental, Provider, DDS Social History Tobacco [...] 10:30 AM EST Office Visit [facility] MED & PEDS 505 [place] [address] Nella Karimi MD 505 [place] [address] 06/05/2025 8:00 AM EST Office Visit [facility] ADULT DENTAL 505 [place] [address] Gilles Johnson 505 [place] [address] 06/22/2025 2:15 PM EST Office Visit [facility] ADULT DENTAL 505 [place] [address] David Karimi documented as of this encounter Visit Diagnoses Not on filedocumented in this encounter Care Teams Circulation Assistant Relationship Specialty Start Date End Date Nella Karimi MD [address] [place] [phone] PCP - General Internal Medicine 07/02/18 documented as of this encounter
--- OUTSIDE RECORDS SUMMARY | 2025-05-04 13:01 | XMS_ITS | Encounter Summary ---
Author Organization [employer] Address [address] [facility] 7 [place] [address] Care Team Providers Care Manager Garage Name Role Phone Nella Karimi MD Primary Care Provider [phone] Reason for Visit * Reason Onset Date Comments PT1 01/16/2024 Encounter Details Date Type Department Care Team ([facility] Contact Info) Description 01/16/2024 Telephone [facility] MED & PEDS 505 [place], [place] [phone] Nella Karimi MD 505 [place] [address] PT1 Social History Tobacco Use Types Packs/Day Years Used Date Smoking Tobacco: Never Assessed Sex and Gender Information Value Date Recorded Sex Assigned at Male 05/01/2022 10:21 AM EDT Legal Sex Male 10:21 AM EDT Gender Identity Male 05/01/2022 10:21 AM EDT Sexual Orientation Straight 05/01/2022 10 :21 AM EDT documented as of this encounter Miscellaneous Notes * Telephone Encounter - Magdaleno Avelar - 01/16/2024 12:01 PM EDT Patient calling requesting PT1 Home Address verified: Y/N: Yes Provider name or facility name: [facility] Facility Facility Address: [address] [place] [address] Escort needed: Y/N: Yes Do you have a wheelchair: Y/N: No If yes- Manual or electric: No Visits: All Future Appts. documented in this encounter Plan of Treatment Upcoming Encounters Date Type Department Care Team (Late st Contact Info) Description 06/04/2025 10:30 AM EST Office Visit [facility] MED & PEDS 505 [place] [address] Nella Karimi MD 505 [place] [address] 06/05/2025 8:00 AM EST Office Visit [facility] ADULT DENTAL 505 [place] [address] Gilles Johnson 505 [place] [address] 06/22/2025 2:15 PM EST Office Visit [facility] ADULT DENTAL 505 [place] [address] David Karimi documented as of this encounter Visit Diagnoses Not on filedocumented in this encounter Care Teams Manager Garage Relationship Specialty Start Date End Date Nella Karimi MD [address] [place] [phone] PCP - General Internal Medicine 07/02/18 documented as of this encounter
--- OUTSIDE RECORDS SUMMARY | 2025-05-04 13:01 | XMS_ITS | Encounter Summary ---
Author Organization [employer] Address [address] [place] [address] 7 [place] [address] Care Team Providers Care Family Preservation Officer Name Role Phone Nella Karimi MD Primary Care Provider [phone] Reason for Visit * Reason Comments Med Refill Encounter Details Date Type Department Care Team (Late st Contact Info) Description 11/04/2023 Refill [facility] MEDICINE [address] [place], [place] [phone] Nella Karimi MD 505 [place] [address] Social History Tobacco Use Types Packs/Day Years [...] Description 06/04/2025 10:30 AM EST Office Visit [facility] MED & PEDS 505 [place] [address] Nella Karimi MD 505 [place] [address] 06/05/2025 8:00 AM EST Office Visit [facility] ADULT DENTAL 505 [place] [address] Gilles Johnson 505 [place] [address] 06/22/2025 2:15 PM EST Office Visit [facility] ADULT DENTAL 505 [place] [address] David Karimi documented as of this encounter Visit Diagnoses Not on filedocumented in this encounter Care Teams Family Preservation Officer Relationship Specialty Start Date End Date Nella Karimi MD 505 [place] [address] PCP - General Internal Medicine 07/02/18 documented as of this encounter
--- OUTSIDE RECORDS SUMMARY | 2025-05-04 13:01 | XMS_ITS | Clinical Summary ---
Author Organization [employer] Address [address] [facility] 7t [place] [address] Care Team Providers Care Rouge Sifter And Miller Name Role Phone Nella Karimi MD Primary Care Provider [phone]- [phone] Allergies No known active allergies Medications levothyroxine (Synthroid) 200 MCG/5ML solution Take 1 tablet by mouth at bed time. 015 Active lidocaine (LMX) 4 % cream at bed time. 014 Active calcium carbonate (Os-Armand) 1250 (500 Ca) MG tablet Take by mouth at bed time. 017 Active zoster vaccine-recombina nt adjuvanted (Shingrix) 50 MCG/0.5ML vaccine Inject 0.5 mL into the shoulder, thigh, or buttocks. 019 Active D3-1000 25 MCG (1000 UT) capsule Take 25 mcg by mouth in the morning. 022 Active amoxicillin (Amoxil) 500 MG capsule Plese take 4 CAPS of 500 MG one hour before your dental appointment. 4 capsule 024 Active simvastatin (Zocor) 40 MG tablet TAKE 1 TABLET(40 MG) BY MOUTH EVERY DAY IN THE EVENING 90 tablet 3 025 Active chlorhexidine (Peridex) 0.12 % solution Swish 15 mL morning and night for 1 minute. Spit, do not swallow. Do not eat or drink for 30 minutes following use. 473 mL 025 Active amoxicillin (Amoxil) 500 MG capsule Take 4 tabs (2 grams) 1 hour prior to dental procedure 4 capsule 3 025 Active amoxicillin (Amoxil) 500 MG capsule Take 4 tabs (2 grams) 1 hour prior to dental procedure 4 capsule Active amoxicillin (Amoxil) 500 MG capsuleIndication s:Prophylactic antibiotic Please take 4 capsules (2 g) 1 hour prior to dental appointment. 10 capsule Active meloxicam (Mobic) 15 MG tabletIndications :Primary osteoarthritis of both knees TAKE 1 TABLET(15 MG) BY MOUTH IN THE MORNING 90 tablet Active traZODone (Desyrel) 100 MG tabletIndications :Adjustment insomnia TAKE 1 TABLET(100 MG) BY MOUTH AT BEDTIME 90 tablet 3 Active PARoxetine (Paxil) 40 MG tabletIndications :Anxiety,Other depression Take 1 tablet (40 mg) by mouth in the morning. 30 tablet 11 025 2025 Active simvastatin (Zocor) 40 MG tabletIndications :Mixed hyperlipidemia Take 1 tablet (40 mg) by mouth at bedtime. 90 tablet 3 025 2025 Active carbamide peroxide (Debrox) 6.5 % otic solutionIndicatio ns:Excessive cerumen in right ear canal Administer 5-10 drops into affected ear(s) 2 times daily for 4 days. 30 mL 025 2024 Active traZODone (Desyrel) 100 MG tabletIndications :Adjustment insomnia Take 1 tablet (100 mg) by mouth at bedtime. 90 tablet 3 024 2024 Discontinued meloxicam (Mobic) 15 MG tabletIndications :Primary osteoarthritis of both knees TAKE 1 TABLET(15 MG) BY MOUTH IN THE MORNING 90 tablet 025 2024 Discontinued PARoxetine (Paxil) 20 MG tabletIndications :Anxiety TAKE 1 TABLET(20 MG) BY MOUTH IN THE MORNING 90 tablet 3 025 2024 Discontinued(I neffective) Active Problems Problem Noted Date Diagnosed Date Acid reflux 10/10/2024 Encounter for screening colonoscopy 10/10/2024 Class 2 obesity 09/03/2024 History of arthroplasty of right knee 06/06/2024 Overview (06/06/2024): Done by Dr Aditya Rivera on 01/31/2013 Postsurgical hypoparathyroidism 05/08/2024 Simple obesity 06/29/2016 Spermatocele 08/23/2015 Varicocele 08/23/2015 History of thyroidectomy 12/31/2013 Malignant tumor of thyroid gland 12/31/2013 Resolved Problems Problem Noted Date Diagnosed Date Resolved Date History of thyroid cancer 05/08/2024 Encounters Date Type Department Care Team Description 05/04/2025 9:30 AM EST Office Visit [facility] MED & PEDS [address] [place] [address] Nella Karimi MD History of thyroidectomy (Primary Dx); Spermatocele; History of arthroplasty of right knee; Dietary counseling; Exercise counseling; Class 3 severe obesity due to excess calories with serious comorbidity and body mass index (BMI) of 40.0 to 44.9 in adult (HCC); Anxiety; Other depression; Mixed hyperlipidemia; Excessive cerumen in right ear canal; Blurry vision, bilateral 05/04/2025 Patient Outreach [facility] [address] [place] [phone] Nella Karimi MD Care Coordination ([facility] outreach for SDOH food needs-LVM) 05/04/2025 Telephone [facility] MED & PEDS [address] [place] [address] Nella Karimi MD 05/04/2025 Travel 2025 Patient Outreach [facility] [address] [place] [phone] Nella Karimi MD Pre-visit Planning (Pre visit planning LVM ) 04/18/2025 Refill [facility] MED & PEDS [address] [place] [address] Nella Karimi MD Adjustment insomnia 04/07/2025 Refill [facility] MED & PEDS [address] [place] [address] Adela Abreu MD Primary osteoarthritis of both knees 03/30/2025 Patient Outreach [facility] [address] [place] [address] Nella Karimi MD Care Coordination ([facility] outreach for SDOH PT-1 and food needs-referral completed /) 03/30/2025 Telephone [facility] MED & PEDS [address] [place] [address] Nella Karimi MD pt1 03/06/2025 Refill [facility] MED & PEDS [address] [place] [address] Nella Karimi MD Anxiety 02/11/2025 Patient Outreach [facility] [address] [place] [address] Nella Karimi MD Care Coordination ([facility] outreach for SDOH PT-1 and food needs-referral completed /) 02/10/2025 Telephone [facility] [address] [place], [place] [phone] Nella Karimi MD PT-1 from Last 3 Months Immunizations Immunization Administration Dates Next Due Influenza Injectable Quadriv alant Preservative Free IIV4 MDCK 04/20/2018 Influenza injectable quadriv alent IIV4 with preservative 05/13/2015 Influenza injectable quadriv alent preservative free 05/03/2022,05/08/2021,03/20/2020,2016 Influenza, IIV3, injectable 04/05/2011, 0 Influenza, Split (incl. francisco fied surface antigen) 03/28/2013 Pneumococcal Conjugate PCV 20 02/19/2024 Tdap 08/23/2015 Social History Tobacco Use Types Packs/Day Years Used Date Smoking Tobacco: Some Days Cigarettes Passive Smoke Exposure: Never Smokeless Tobacco: Never Tobacco Cessation:Ready to Q uit: Not Asked; Counseling Given: Not Answered Depression Answer Date Recorded Patient Health Questionnaire-9 [...] Orientation Straight 05/01/2022 10 :21 AM EDT Last Filed Vital Signs Vital Sign Reading Time Taken Comments Blood Pressure 109/84 05/04/2025 9:52 AM EST Pulse 54 05/04/2025 9:52 AM EST Temperature 36.4 C (97.5 F) 08/05/2024 9:09 AM EST Respiratory Rate 19 05/04/2025 9:52 AM EST Oxygen Saturation 98% 05/04/2025 9:52 AM EST Inhaled Oxygen Concentration - - Weight 133 kg (293 lb) 05/04/2025 9:52 AM EST Height 180.3 cm (5' 11 ) 05/04/2025 9:52 AM EST Body Mass Index 40.87 05/04/2025 9:52 AM EST Plan of Treatment Upcoming Encounters Date Type Department Care Team (Late st Contact Info) Description 06/04/2025 10:30 AM EST Office Visit [facility] MED & PEDS [address] [place] [address] Nella Karimi MD 505 [place] [address] 06/05/2025 8:00 AM EST Office Visit [facility] ADULT DENTAL [address] [place] [address] Gilles Johnson 505 [place] [address] 06/22/2025 2:15 PM EST Office Visit [facility] ADULT DENTAL [address] [place] [address] Salvatore Karimiouard Health Maintenance Due Date Last Done Comments CT Colonography 1964 Colonoscopy 1964 Colorectal Cancer Screening 1964 FIT DNA/Cologuard 1964 FIT 1964 FOBT 1964 Sigmoidoscopy 1964 Disability Screening 1964 Zoster Vaccines (1 of 2) 2014 RSV Patients and Patients Aged 60 years or older (1 - Risk 60-74 years 1-dose series) 2024 Dental Oral Exam 07/21/2024 01/18/2024, 05/24/2022 Dental Prophylaxis 06/21/2025 12/19/2024, 0 01/18/2024, 12/22/2020 DTaP/Tdap/Td Vaccines (3 - Td or Tdap) 08/23/2025 08/23/2015, 06/03/2014 Depression Monitoring 11/01/2025 05/04/2025, 025 Dental X-Ray: Bitewings 12/20/2025 12/20/19 25, 01/18/2024, 05/24/2022 Tobacco Screening 01/07/2026 01/07/2025 Alcohol/Substance Use Screening 05/04/2026 05/04/2025 SDOH Screening 05/04/2026 05/04/2025 Dental X-Ray: Full Mouth 10/12/2027 025, 01/18/2024, 12/22/2020 Lipid Panel 02/18/2029 02/19/2024 Hepatitis C Screening Completed 02/19/2024 Pneumococcal Vaccine: 50+ Years Completed 02/19/2024 COVID-19 Vaccine Completed 04/10/2025, 03/2024, 05/17/2021, Additional history exists Influenza Vaccine Completed 04/10/2025, , 05/03/2022, Additional history exists HIB Vaccines Aged Out No longer eligi ble based on patient's age to complete this topic HIV Screening Discontinued HPV Vaccines Aged Out No longer eligi ble based on patient's age to complete this topic Hepatitis A Vaccines Aged Out No long er eligible based on patient's age to complete this topic Hepatitis B Vaccines Aged Out No long er eligible based on patient's age to complete this topic IPV Vaccines Aged Out No longer eligi ble based on patient's age to complete this topic Meningococcal B Vaccine Aged Out No l onger eligible based on patient's age to complete this topic Meningococcal Vaccine Aged Out No desmond marge eligible based on patient's age to complete this topic RSV under 20 months Aged Out No longe r eligible based on patient's age to complete this topic Rotavirus Vaccines Aged Out No longer eligible based on patient's age to complete this topic Procedures Procedure Name Priority Date/Time Associated Diagnosis Comments Full PROPHYLAXIS - ADULT Routine 12/19/2024 10:00 AM EDT BITEWINGS - 4 RADIOGRAPHIC IMAGES Routine 12/19/2024 10:00 AM EDT PANORAMIC RADIOGRAPHIC IMAGE Routine 10/10/2024 8:00 AM EDT HEPATITIS C VIRAL RNA, QUANTITATIVE, REAL-TIME PCR Routine 02/19/2024 10:27 AM EDT Annual physical exam Morbid obesity (CMS/HCC) LIPID PANEL, STANDARD Routine 02/19/2024 10:27 AM EDT Annual physical exam Morbid obesity (CMS/HCC) PERIODIC ORAL EVALUATION - ESTABLISHED PATIENT Routine 01/18/2024 2:00 PM EDT from Last 3 Months or Most Recently Relevant to Health Maintenance Results * Hepatitis C Viral RNA, Quantitative, Real-Time PCR (02/19/2024 10:27 AM EDT) Hepatitis C Viral Load <15 NOT DETECTED NOT DETECTED IU/mL [facility] HCV Log PCR <1.18 NOT DETECTED NOT DETECTED Log IU/mL [facility] Comment:For additional infor mation, please refer tohttp://education.[employer]/faq/OBW87c9(This link is being provided for informational/educational purposes only.)THIS TEST WAS PERFORMED AT:[address] [place] [id number] MENDOZA MD Blood Venous blood specimen / Unknown 02/19/2024 10:27 AM EDT 02/19/2024 2:24 PM EDT Nella Karimi MD LAB BLOOD ORDERABLES Final Result Performing Organization Address City/[facility]/ZIP Co de Phone Number [facility] [address] [place] [phone] * Lipid Panel, Standard (02/19/2024 10:27 AM EDT) Triglycerides 70 <150 mg/dL [facility] Comment:Desirable Triglyceri de: less than 150 mg/dLBorderline High Triglyceride 150-199 mg/dLHigh Triglyceride: 200-499 mg/dLVery High Triglyceride: greater than or equal to 5OO mg/dL Cholesterol 160 <200 mg/dL [facility] Comment:Desirable Cholestero l: less than 200 mg/dLBorderline High Cholesterol: 200-239 mg/dLHigh Cholesterol: greater than 239 mg/dL LDL Cholesterol Calculated 94 <100 mg/dL [facility] Comment:Desirable LDL: less than 100 mg/dLNear Optimal/Above Optimal LDL: 110- 129 mg/dLBorderline High LDL: 130-159 mg/dLHigh LDL: 160-189 mg/dLVery High LDL: greater than or equal to 190 mg/dL HDL Cholesterol 52 >40 mg/dL [facility] Comment:Desirable HDL: great er than 40 mg/dL Note: This HDL assay may give artificially low results in patients with liver disease. Blood Venous blood specimen / Unknown 02/19/2024 10:27 AM EDT 02/19/2024 2:24 PM EDT us Nella Karimi MD LAB BLOOD ORDERABLES Final Result Performing Organization Address City/[facility]/ZIP Co de Phone Number [facility] [address] [place] [phone] from Last 3 Months or Most Recently Relevant to Health Maintenance Insurance PENDING SALE TO [facility] [employer] [phone] [facility] MEDICAID STAND ADULT Care Teams Rouge Sifter And Miller Relationship Specialty Start Date End Date Nella Karimi MD [address] [place] [phone] PCP - General Internal Medicine 07/02/18
--- OUTSIDE RECORDS SUMMARY | 2025-05-04 13:01 | XMS_ITS | Encounter Summary ---
Author Organization [employer] Address [address] [facility] 7t [place] [address] Care Team Providers Care Buyer Name Role Phone Nella Karimi MD Primary Care Provider [phone] Reason for Visit * Reason Onset Date Comments antibiotics for dental tx?? 01/14/2024 Encounter Details Date Type Department Care Team (Late st Contact Info) Description 01/14/2024 Telephone [facility] CHC ADULT DENTAL [address] [place], [place] [phone] Ángel Padilla, DMD [address] [place], [place] [phone] antibiotics for dental tx?? Social History Tobacco Use Types Packs/Day Years Used Date Smoking Tobacco: Never Assessed Sex and Gender Information Value Date Recorded Sex Assigned at Male 05/01/2022 10:21 AM EDT Legal Sex Male 10:21 AM EDT Gender Identity Male 05/01/2022 10:21 AM EDT Sexual Orientation Straight 05/01/2022 10 :21 AM EDT documented as of this encounter Miscellaneous Notes * Telephone Encounter - Jennifer Lopez - 01/14/2024 3:30 PM EDT Patient wants to confirm whether or not he still has to take antibiotics for dental tx. The last time they were scripted was back on 07/26/2022. It is due to knee replacement. Pls reach out to patient to update DR documented in this encounter Plan of Treatment Upcoming Encounters Date Type Department Care Team (Late st Contact Info) Description 06/04/2025 10:30 AM EST Office Visit [facility] MED & PEDS [address] [place] [address] Nella Karimi MD 505 [place] [address] 06/05/2025 8:00 AM EST Office Visit [facility] ADULT DENTAL [address] [place] [address] Gilles Johnson 505 [place] [address] 06/22/2025 2:15 PM EST Office Visit [facility] ADULT DENTAL [address] [place] [address] David Karimi documented as of this encounter Visit Diagnoses Not on filedocumented in this encounter Care Teams Buyer Relationship Specialty Start Date End Date Nella Karimi MD [address] [place] [address] PCP - General Internal Medicine 07/02/18 documented as of this encounter
--- OUTSIDE RECORDS SUMMARY | 2025-05-04 13:01 | XMS_ITS | Encounter Summary ---
Author Organization [employer] Address [address] [place] [address] 7 [place] [address] Care Team Providers Care Hydraulic Riveter Name Role Phone Nella Karimi MD Primary Care Provider [phone] Reason for Visit * Reason Comments Med Refill Encounter Details Date Type Department Care Team (Late Contact Info) Description 08/09/[address] [facility] MED & PEDS [address] [place] [address] Nella Karimi MD [address] [place] [address] Adjustment insomnia Social History Tobacco Use Types [...] Description 06/04/2025 10:30 AM EST Office Visit [facility] MED & PEDS [address] [place] [address] Nella Karimi MD 505 [place] [address] 06/05/2025 8:00 AM EST Office Visit [facility] ADULT DENTAL [address] [place] [address] Gilles Johnson 505 [place] [address] 06/22/2025 2:15 PM EST Office Visit [facility] CHC ADULT DENTAL [address] [place] [address] David Karimi documented as of this encounter Visit Diagnoses Diagnosis Adjustment insomnia Insomnia, unspecified documented in this encounter Care Teams Hydraulic Riveter Relationship Specialty Start Date End Date Nella Karimi MD [address] [place] [address] PCP - General Internal Medicine 07/02/18 documented as of this encounter
--- OUTSIDE RECORDS SUMMARY | 2025-05-04 13:01 | XMS_ITS | Encounter Summary ---
Author Organization [employer] Address [address] [place] [address] 7 [place] [address] Care Team Providers Care Acid Supervisor Name Role Phone Nella Karimi MD Primary Care Provider [phone] Reason for Visit * Reason Comments Med Refill Encounter Details Date Type Department Care Team (Late st Contact Info) Description 08/15/2023 Refill [facility] MED & PEDS [address] [place], [place] [phone] Nella Karimi MD [address] [place] [address] Adjustment insomnia Social History Tobacco Use Types Packs/Day Years Used Date Smoking Tobacco: Never Assessed Sex and Gender Information Value Date Recorded Sex Assigned at Male 05/01/2022 10:21 AM EDT Legal Sex Male 10:21 AM EDT Gender Identity Male 05/01/2022 10:21 AM EDT Sexual Orientation Straight 05/01/2022 10 :21 AM EDT documented as of this encounter Miscellaneous Notes * Telephone Encounter - Phillip Coello - 08/15/2023 4:48 PM EST TC from pt requesting medication refill. Medications needing refill : traZODone (Desyrel) 100 MG tablet To be sent to: [facility] documented in this encounter Plan of Treatment Upcoming Encounters Date Type Department Care Team (Late st Contact Info) Description 06/04/2025 10:30 AM EST Office Visit [facility] CHC MED & PEDS [address] [place], [place] [phone] Nella Karimi MD [address] [place] [address] 06/05/2025 8:00 AM EST Office Visit [facility] ADULT DENTAL [address] [place] [address] Gilles Johnson 505 [place] [address] 06/22/2025 2:15 PM EST Office Visit [facility] ADULT DENTAL [address] [place] [address] David Karimi documented as of this encounter Visit Diagnoses Diagnosis Adjustment insomnia Insomnia, unspecified documented in this encounter Care Teams Acid Supervisor Relationship Specialty Start Date End Date Nella Karimi MD [address] [place] [address] PCP - General Internal Medicine 07/02/18 documented as of this encounter
--- OUTSIDE RECORDS SUMMARY | 2025-05-04 13:01 | XMS_ITS | Encounter Summary ---
Author Organization [employer] Address [address] [facility] 7t [place] [address] Care Team Providers Care Tail Worker Name Role Phone Nella Karimi MD Primary Care Provider [phone] Encounter Details Date Type Department Care Team (Latest Contact Info) Description 05/04/2025 Travel Social History Tobacco Use Types Packs/Day Years [...] 10:30 AM EST Office Visit [facility] MED & PEDS [address] [place] [address] Nella Karimi MD 505 [place] [address] 06/05/2025 8:00 AM EST Office Visit [facility] ADULT DENTAL [address] [place] [address] Elizabeth, Gilles 505 [place] [address] 06/22/2025 2:15 PM EST Office Visit [facility] ADULT DENTAL [address] [place] [address] David Karimi documented as of this encounter Visit Diagnoses Not on filedocumented in this encounter Additional Health Concerns Assessment Noted Time PHQ-9 Depression Total Score: 9 05/04/20 25 10:26 AM EST documented as of this encounter Care Teams Tail Worker Relationship Specialty Start Date End Date Nella Karimi MD [address] [place] [address] PCP - General Internal Medicine 07/02/18 documented as of this encounter
--- OUTSIDE RECORDS SUMMARY | 2025-05-04 13:01 | XMS_ITS | Encounter Summary ---
Author Organization [employer] Address [address] [place] [address] 7 [place] [address] Care Team Providers Care Nailing Machine Feeder Name Role Phone Nella Karimi MD Primary Care Provider [phone] Encounter Details Date Type Department Care Team (Late st Contact Info) Description 06/06/2022 Abstract [facility] ADULT DENTAL [address] [place] [address] Dental, Provider, DDS Social History Tobacco Use [...] [facility] [address] [place] [address] Nella Karimi MD 505 [place] [address] 06/05/2025 8:00 AM EST Office Visit [facility] ADULT DENTAL [address] [place] [address] Gilles Johnson 505 [place] [address] 06/22/2025 2:15 PM EST Office Visit [facility] ADULT DENTAL [address] [place] [address] David Karimi documented as of this encounter Procedures Procedure Name Priority Date/Time Associated Diagnosis Comments 31 MOL COMPOSITE FILLING Routine 06/06/2022 12:00 AM EST 19 AMALGAM FILLING Routine 06/06/2022 12:00 AM EST 3 MO AMALGAM FILLING Routine 06/06/2022 12:00 AM EST 2 O AMALGAM FILLING Routine 06/06/2022 12:00 AM EST 15 ROOT CANAL Routine 06/06/2022 12:00 AM EST documented in this encounter Visit Diagnoses Not on filedocumented in this encounter Care Teams Nailing Machine Feeder Relationship Specialty Start Date End Date Nella Karimi MD [address] [place] [id number] PCP - General Internal Medicine 07/02/18 documented as of this encounter
--- OUTSIDE RECORDS SUMMARY | 2025-05-04 13:01 | XMS_ITS | Encounter Summary ---
Author Organization [employer] Address [address] [facility] 7 [place] [address] Care Team Providers Care Security Clerk Name Role Phone Nella Karimi MD Primary Care Provider [phone] Reason for Visit * Reason Onset Date Comments Call Back Request 12/18/2023 Encounter Details Date Type Department Care Team ([facility] st Contact Info) Description 12/18/2023 Telephone [facility] CHC MED & PEDS [address] [place], [place] [phone] Nella Karimi MD [address] [place] [address] Call Back Request Social History Tobacco Use Types Packs/Day Years Used Date Smoking Tobacco: Never Assessed Sex and Gender Information Value Date Recorded Sex Assigned at Male 05/01/2022 10:21 AM EDT Legal Sex Male 10:21 AM EDT Gender Identity Male 05/01/2022 10:21 AM EDT Sexual Orientation Straight 05/01/2022 10 :21 AM EDT documented as of this encounter Miscellaneous Notes * Telephone Encounter - Wing Rob RN - 12/20/2023 2:14 PM EDT Tc to pt, pt had called pharmacy and they had reached out to the provider to get a refill for the meloxicam for his arthritis. Pt reports feeling much better. Pt also understands he has appt iw [facility] 02/18 though has some transportation issues. Relayed that [employer] were available to be set up by usif needed. Pt verbalized understanding and agreement with plan. * Telephone Encounter - Vi Walter - 12/18/2023 10:23 AM EDT Tc from pt requesting to speak with a nurse in regards to medication. Please contact pt at [phone] documented in this encounter Plan of Treatment Upcoming Encounters Date Type Department Care Team (Late st Contact Info) Description 06/04/2025 10:30 AM EST Office Visit [facility] MED & PEDS [address] [place] [address] Nella Karimi MD [address] [place] [address] 06/05/2025 8:00 AM EST Office Visit [facility] ADULT DENTAL [address] [place] [address] Gilles Johnson [address] [place] [address] 06/22/2025 2:15 PM EST Office Visit [facility] ADULT DENTAL [address] [place] [address] David Karimi documented as of this encounter Visit Diagnoses Not on filedocumented in this encounter Care Teams Security Clerk Relationship Specialty Start Date End Date Nella Karimi MD [address] [place] [address] PCP - General Internal Medicine 07/02/18 documented as of this encounter
--- OUTSIDE RECORDS SUMMARY | 2025-05-04 13:01 | XMS_ITS | Encounter Summary ---
Author Organization [employer] Address [address] [facility] 7 [place] [address] Care Team Providers Care Boilermaker Loftsman Name Role Phone Nella Karimi MD Primary Care Provider [phone] Reason for Visit * Reason Onset Date Comments Medication Question 08/13/2023 Encounter Details Date Type Department Care Team ([facility] st Contact Info) Description 08/13/2023 Telephone [facility] CHC MED & PEDS [address] [place], [place] [phone] Nella Karimi MD [address] [place] [address] Medication Question Social History Tobacco Use Types Packs/Day Years Used Date Smoking Tobacco: Never Assessed Sex and Gender Information Value Date Recorded Sex Assigned at Male 05/01/2022 10:21 AM EDT Legal Sex Male 10:21 AM EDT Gender Identity Male 05/01/2022 10:21 AM EDT Sexual Orientation Straight 05/01/2022 10 :21 AM EDT documented as of this encounter Miscellaneous Notes * Telephone Encounter - Vi Walter - 08/23/2023 12:43 PM EST Tc from pt requesting status on trazodone. States pharmacy does not have script. Please contact pt at [phone] * Telephone Encounter - Ara Vale RN - 08/17/2023 9:49 AM EST Returned call to pt regarding message below. Pt agrees to f/u with PCP in 08/29/23 and will case picker one month supply of med from pharmacy. * Telephone Encounter - Ara Vale RN - 08/16/2023 10:45 AM EST Pt needs refill on Trazodone but has not been seen in a long time by PCP. Please advise if refill can be queued. * Telephone Encounter - Radha Nelson - 08/13/2023 10:59 AM EST Tc from pt calling in to inform went to case picker medication [facility]) [facility] and was informed it was denied by provider . I did inform pt medication was sent on 08/03/23 and pt is unsure of what they may need . Please call pt to clarify . documented in this encounter Plan of Treatment Upcoming Encounters Date Type Department Care Team (Late st Contact Info) Description 06/04/2025 10:30 AM EST Office Visit [facility] MED & PEDS [address] [place] [address] Nella Karimi MD [address] [place] [address] 06/05/2025 8:00 AM EST Office Visit [facility] ADULT DENTAL [address] [place] [address] Gilles Johnson [address] [place] [address] 06/22/2025 2:15 PM EST Office Visit [facility] ADULT DENTAL [address] [place] [address] David Karimi documented as of this encounter Visit Diagnoses Not on filedocumented in this encounter Care Teams Boilermaker Loftsman Relationship Specialty Start Date End Date Nella Karimi MD [address] [place] [address] PCP - General Internal Medicine 07/02/18 documented as of this encounter
--- OUTSIDE RECORDS SUMMARY | 2025-05-04 13:01 | XMS_ITS | Encounter Summary ---
Author Organization [employer] Address [address] [place] [address] 7t [place] [address] Care Team Providers Care Calculation Reviewer Name Role Phone Nella Karimi MD Primary Care Provider [phone] Reason for Visit * Reason Comments Med Refill Encounter Details Date Type Department Care Team (Late Contact Info) Description 11/16/2023 Refill [facility] MED & PEDS [address] [place] [address] Nella Karimi MD [address] [place] [address] Adjustment insomnia; Primary osteoarthritis of both knees Social History [...] Description 06/04/2025 10:30 AM EST Office Visit [facility] MED & PEDS [address] [place] [address] Nella Karimi MD [address] [place] [address] 06/05/2025 8:00 AM EST Office Visit [facility] ADULT DENTAL [address] [place] [address] Gilles Johnson [address] [place] [address] 06/22/2025 2:15 PM EST Office Visit [facility] ADULT DENTAL [address] [place] [address] David Karimi documented as of this encounter Visit Diagnoses Diagnosis Adjustment insomnia Insomnia, unspecified Primary osteoarthritis of both knees documented in this encounter Care Teams Calculation Reviewer Relationship Specialty Start Date End Date Nella Karimi MD [address] [place] [address] PCP - General Internal Medicine 07/02/18 documented as of this encounter
--- OUTSIDE RECORDS SUMMARY | 2025-05-04 13:02 | XMS_ITS | Clinical Summary ---
Author Organization [facility] Address [address] [place] [address] Phone Care Team Providers Care Marine Service Station Attendant Name Role Phone Nella Karimi MD Primary Care Pr ovider Allergies No known active allergies Medications meloxicam (MOBIC) 15 MG tablet Take 15 mg by mouth daily. 4 Active PARoxetine (PAXIL) 20 MG tablet Take 20 mg by mouth every morning. 4 Active cholecalciferol (VITAMIN D3) 25 MCG (1,000 unit) tablet Take 1,000 Units by mouth daily. Active traZODone (DESYREL) 100 MG tablet Take 100 mg by mouth nightly at bedtime. 4 Active simvastatin (ZOCOR) 40 MG tablet Take 40 mg by mouth nightly at bedtime. 3 Active levothyroxine (SYNTHROID, LEVOTHROID) 50 MCG tabletIndications:P ostoperative hypothyroidism TAKE 3 TABLETS BY MOUTH SIX DAYS OF THE WEEK AND SKIP DOSE ON THE SEVENTH DAY 234 tablet 1 5 Active cholecalciferol, vitamin D3, 25 mcg (1,000 unit) capsuleIndications: Vitamin D deficiency TAKE 1 CAPSULE BY MOUTH DAILY 90 capsule 3 5 Active calcium carbonate (OS-PRINCESS) 1,500 mg (600 mg elemental) tabletIndications:H ypocalcemia TAKE 1 TABLET BY MOUTH TWICE DAILY WITH MEALS 180 tablet 3 5 Active Active Problems Problem Noted Date Diagnosed Date Vitamin D deficiency, unspecified 12/11/2024 Assessment & Plan (12/11/2024 7:03 PM EDT): Last 25 OH vitamin D was normal at 41.9 in 12/2023. Patient remains on 1000 IU D3 daily. -Continue current replacement and monitor Postoperative hypothyroidism 05/08/2024 Assessment & Plan (12/11/2024 6:56 PM EDT): Slightly over replaced on daily average of 143 mcg levothyroxine. Remains on the 50 mcg tablets 3 tabs 6 days a week and 2 tabs 1 day a week. Has had some itching in the past on levothyroxine with coloring agents. Since no evidence for thyroid cancer recurrence there is no need to suppress his TSH. Goal TSH between 0.5-2.0. -Decrease levothyroxine to 150 mcg 6 days a week= 129 mcg daily average dose -Recheck TSH in 3 months, reviewed through patient portal -Follow-up in 1 year History of thyroid cancer 05/08/2024 Assessment & Plan (12/11/2024 6:59 PM EDT): Right 8 mm PTC, total thyroidectomy performed in 08/2013 with no radioactive iodine ablation because of low risk for recurrence. In 12/2023 thyroglobulin level was detectable at 0.1 with TSH of 0.405, which is a change from previous undetectable levels while TSH low normal. Thyroglobulin antibody has been undetectable all along. Last labs on 12/05/2023 showed undetectable thyroglobulin and undetectable thyroglobulin antibody while TSH is low 0.12. -Goal to keep TSH 0.5-2.0 -Monitor tumor markers yearly with TSH. Postsurgical hypoparathyroidism 05/08/2024 Assessment & Plan (12/11/2024 7:02 PM EDT): Postsurgical after thyroidectomy. Patient was on high dose calcium supplementation for years, lately getting 600 mg calcium daily and about the same amount from his diet. Last calcium level low normal in 12/2023 with normal serum albumin. Denies symptoms of hypocalcemia. - Encouraged to continue to get about 1200 mg of calcium daily combined from food and supplement -Advise patient to monitor for symptoms of low calcium and adjust calcium intake accordingly. Encounters Date Type Department Care Team Description 03/18/2025 Refill [facility] [address] [place] [address] Suzan Cope MD Medication Refill 03/04/2025 Telephone [facility] [address] [place] [address] Suzan Cope MD Mail lab slip (Mail lab slip) 02/21/2025 Refill [facility] [address] [place] [address] Suzan Cope MD Medication Refill from Last 3 Months Social History Tobacco Use Types Packs/Day Years Used Date Smoking Tobacco: Every Day Cigarettes 0.3 25.8 Started: 07/02/1999 Smokeless Tobacco: Current Comments:Occasional Marijuan a Education Answer Date Recorded Are you interested in more education? Not on nick e 04/13/2023 Are you concerned about learning? Not on file 04/13/2023 No 04/13/2023 No 04/13/2023 Digital Access Answer Date Recorded No 04/13/2023 No 04/13/2023 Reliable internet access at home? Not on file 04/13/2023 Device with a working camera? Not on file Sex and Gender Information Value Date Recorded Sex Assigned at Not on file Legal Sex Male 3:46 PM EDT Gender Identity Not on file Sexual Orientation Not on file Last Filed Vital Signs Vital Sign Reading Time Taken Comments Blood Pressure 102/58 12/08/2024 1:42 PM EDT Pulse 53 12/08/2024 1:42 PM EDT Temperature - - Respiratory Rate - - Oxygen Saturation - - Inhaled Oxygen Concentration - - Weight 131.1 kg (289 lb) 12/08/2024 1:42 PM EDT Height - - Body Mass Index - - Plan of Treatment Upcoming Encounters Date Type Department Care Team (Late st Contact Info) Description 12/08/2025 10:20 AM EDT Office Visit [facility] [address] [address] Suzan Cope MD [address] [place] [phone] [email or web address] Health Maintenance Due Date Last Done Comments DEPRESSION SCREENING 1976 SMOKING Hx and SMOKELESS TOBACCO SCREENING 1977 HEPATITIS C SCREENING 1982 HIV ONE-TIME SCREENING (18-65 YEARS) 1982 PNEUMOCOCCAL VACCINES (50+ years) (1 of 2 - PCV) 1983 COLOGUARD 2009 COLONOSCOPY 2009 COLORECTAL CANCER SCREENING 2009 FIT TEST 2009 FOBT 2009 SIGMOIDOSCOPY 2009 VIRTUAL COLONOSCOPY 2009 ZOSTER VACCINES (1 of 2) 2014 INFLUENZA VACCINE (#1) 2025 COVID-19 VACCINE ( season) 2025 Adult Td,Tdap Booster 08/23/2025 08/23/2015 TSH LEVEL 03/31/2026 03/31/2025, 06/0 01/2025, 04/28/2024, Additional history exists LIPID PANEL 02/18/2029 02/19/2024 RSV VACCINE (1 - 1-dose 75+ series) 2039 HEPATITIS A VACCINES Aged Out No long er eligible based on patient's age to complete this topic HIB VACCINES Aged Out No longer eligi ble based on patient's age to complete this topic MENINGOCOCCAL VACCINES (ACWY) Aged Out No longer eligible based on patient's age to complete this topic MENINGOCOCCAL VACCINES (B) Aged Out N o longer eligible based on patient's age to complete this topic Medical Devices Not on file Procedures Procedure Name Priority Date/Time Associated Diagnosis Comments TSH WITH REFLEX Routine 03/31/2025 3:04 PM EDT Postoperative hypothyroidism COMPREHENSIVE METABOLIC PANEL (CMP) Routine 03/31/2025 3:04 PM EDT Postsurgical hypoparathyroidism 25-OH VITAMIN D Routine 03/31/2025 3:04 PM EDT Vitamin D deficiency, unspecified from Last 3 Months Results * TSH with reflex (03/31/2025 3:04 PM EDT) Blood Suzan Cope MD LAB BLOOD BKR ORDERABLES Final Result Performing Organization Address City/[facility]/ZIP Co de Phone Number [address] [address] * Comprehensive metabolic panel (03/31/2025 3:04 PM EDT) Blood Suzan Cope MD LAB BLOOD BKR ORDERABLES Final Result Performing Organization Address City/[facility]/ZIP Co de Phone Number [address] [address] * 25-OH vitamin D (03/31/2025 3:04 PM EDT) Blood Suzan Cope MD LAB BLOOD BKR ORDERABLES Final Result Performing Organization Address [facility] Co de Phone Number [address] [address] from Last 3 Months Insurance MEDIC[place] PART A [place] [id number] [facility] MEDICARE PART A & B [employer] MED[employer] PART A & [facility] PART [facility] [employer] MEDICARE PART A & B [place] MEDICARE PART A & [place] [phone] Care Teams Marine Service Station Attendant Relationship Specialty Start Date End Date Nella Karimi MD PCP - General Internal Medicine 04/12/23 Additional Source Comments The information contained in this document represents components of the legal health record. It is not the complete legal health record.[facility]
--- OUTSIDE RECORDS SUMMARY | 2025-05-04 13:02 | XMS_ITS | Encounter Summary ---
Author Organization [employer] Address [address] [facility] [address] [place] [address] Care Team Providers Care Electric Meter Repairer Name Role Phone Nella Karimi MD Primary Care Provider [phone] Reason for Visit * Reason Onset Date Comments pt1 03/30/2025 Encounter Details Date Type Department Care Team ([facility] st Contact Info) Description 03/30/2025 Telephone [facility] PEDS [address], [place] [phone] Nella Karimi MD [address] [place] [address] pt1 Social History Tobacco Use Types Packs/Day Years [...] encounter Miscellaneous Notes * Telephone Encounter - Cecile Salinas - 03/30/2025 1:55 PM EDT Patient calling requesting PT1 Home Address verified: Y/N: Yes Provider name or facility name: [address] [facility] Escort needed: No Do you have a wheelchair: Y/N: No If yes- Manual or electric: Visits: 2x a month Patient calling requesting PT1 Home Address verified: Y/N: Yes Provider name or facility: [facility] [address] [place] [address] Escort needed: Y/N: No Do you have a wheelchair: Y/N: No If yes- Manual or electric: Visits: (amount of visits) ( x monthly, weekly, daily) documented in this encounter Plan of Treatment Upcoming Encounters Date Type Department Care Team (Late st Contact Info) Description 06/04/2025 10:30 AM EST Office Visit [facility] MED & PEDS [address] [place] [address] Nella Karimi MD [address] [place] [address] 06/05/2025 8:00 AM EST Office Visit [facility] ADULT DENTAL [address] [place] [address] Gilles Johnson [address] [place] [address] 06/22/2025 2:15 PM EST Office Visit [facility] ADULT DENTAL [address] [place] [address] David Karimi documented as of this encounter Visit Diagnoses Not on filedocumented in this encounter Care Teams Electric Meter Repairer Relationship Specialty Start Date End Date Nella Karimi MD [address] [place] [address] PCP - General Internal Medicine 07/02/18 documented as of this encounter
[2025-05-04 14:11] LABS: MANUAL DIFF FLAG NO
[2025-05-04 14:12] LABS: Hematocrit 45.2 % (42.0-52.0); Hemoglobin 15.6 g/dl (14.0-18.0); Imm Gran Abs Auto 0.02 X10*3/uL (0.00-0.03); Imm Gran Pct Auto 0.3 % (0.0-0.4); Lymphocytes Absolute Auto 1.5 X10*3/uL (1.2-4.9); Mean Corpuscular HGB Conc 34.5 g/dl (31.0-36.0); Mean Corpuscular Hemoglobin 31.9 pg (27.0-33.0); Mean Corpuscular Volume 92.4 fL (80.0-98.0); NRBC Abs Auto 0.000 X10*3/uL (0.0-0.012); NRBC Pct Auto 0.0 /100WBC (0.0-0.2); Platelet Count 195 X10*3/uL (160-400); Red Blood Count 4.89 X10*6/uL (4.60-5.80); White Blood Count 6.3 X10*3/uL (4.8-10.8)
[2025-05-04 14:32] LABS: Alanine Aminotransferase 24 U/L (0-40); Albumin Level 4.4 g/dL (3.5-5.0); Alkaline Phosphatase 64 U/L (39-117); Anion Gap 12 (12-20); Aspartate Amino Transferase 31 U/L (5-37); Blood Urea Nitrogen 30 mg/dL (9-16); Calcium 9.0 mg/dL (8.4-10.2); Carbon Dioxide 27 mmol/L (22-29); Chloride 105 mmol/L (96-108); Cholesterol 180 mg/dL (<200); Estimated Glomerular Filt Rate > 60; HDL Cholesterol 53 mg/dL (>40); Potassium 4.0 mmol/L (3.3-5.1); Sodium 140 mmol/L (135-145); Total Protein 7.1 g/dL (6.5-8.0); Triglycerides 85 mg/dL (<150)
== END 2025-05-04 10:40 | disposition home or self-care (01) ==
LOC: HO.CHCLDS 10:39
PROVIDERS: Visit Provider Internal Medicine
DX: E66.813 Obesity, class 3 (principal); Z68.41 Body mass index [BMI] 40.0-44.9, adult; Z98.890 Other specified postprocedural states; Z90.89 Acquired absence of other organs
CPT/HCPCS: 36415; 80053; 80061; 85025